=== PATIENT | male | born 2000 | race Caucasian/White ===

== ENCOUNTER 2022-11-14 09:34 | Emergency (ER) | payer MEDICAID, SELFPAY ==
--- NOTE | 2022-11-14 09:38 | ECG_ITS ---
Test Reason : cp Blood Pressure : / mmHG Vent. Rate : 070 BPM Atrial Rate : 070 BPM P-R Int : 148 ms QRS Dur : 092 ms QT Int : 328 ms P-R-T Axes : 065 057 028 degrees QTc Int : 354 ms Normal sinus rhythm Normal ECG No previous ECGs available Referred By: Generic ED Physician Electronically Signed By:THEA GILBERT
[2022-11-14 09:57] VITALS: BP 124/78; PULSE 68; RESP 15; TEMP 36.8; O2SAT 98; BMI 29.8
[2022-11-14 10:16] LABS: MANUAL DIFF FLAG NO
[2022-11-14 10:17] LABS: Basophils Absolute Auto 0.1 X10*3/uL (0.0-0.2); Basophils Percent Auto 0.8 % (0-2); Eosinophils Absolute Auto 0.2 X10*3/uL (0.0-0.4); Eosinophils Percent Auto 2.8 % (0-4); Hematocrit 48.6 % (42.0-52.0); Hemoglobin 16.6 g/dl (14.0-18.0); Imm Gran Abs Auto 0.02 X10*3/uL (0.00-0.03); Imm Gran Pct Auto 0.3 % (0.0-0.4); Lymphocytes Absolute Auto 2.1 X10*3/uL (1.2-4.9); Lymphocytes Percent Auto 25.9 % (20-40); Mean Corpuscular HGB Conc 34.2 g/dl (31.0-36.0); Mean Corpuscular Hemoglobin 27.9 pg (27.0-33.0); Mean Corpuscular Volume 81.5 fL (80.0-98.0); Mean Platelet Volume 8.9 fL (9.4-12.4); Monocytes Absolute Auto 0.8 X10*3/uL (0.1-1.2); Monocytes Percent Auto 10.4 % (2-11); Neutrophils Absolute Auto 4.7 x10*3/uL (2.0-8.3); Neutrophils Percent Auto 59.8 % (45-73); Platelet Count 302 X10*3/uL (160-400); Red Blood Count 5.96 X10*6/uL (4.60-5.80); Red Cell Distribution Width 13.6 % (11.0-16.0); White Blood Count 7.9 X10*3/uL (4.8-10.8)
[2022-11-14 10:19] LABS: Appearance Urine Clear; Color Urine Yellow; Glucose Urine UA Negative (Negative); Nitrite Urine Negative (Negative); PH 6.5 (5.0-9.0); Urine Blood Negative (Negative); Urine Ketones Negative (Negative); Urine Protein Negative (Neg-Trace)
[2022-11-14 10:20] LABS: Leukocyte Esterase Urine Negative (Negative)
[2022-11-14 11:15] LABS: Alanine Aminotransferase 21 U/L (0-40); Albumin Level 4.4 g/dL (3.5-5.0); Alkaline Phosphatase 67 U/L (39-117); Anion Gap 13 (12-20); Aspartate Amino Transferase 24 U/L (5-37); Bilirubin Direct < 0.2 mg/dL (0.0-0.5); Bilirubin Total 0.2 mg/dL (0.0-1.0); Blood Urea Nitrogen 8 mg/dL (9-16); Calcium 9.8 mg/dL (8.4-10.2); Carbon Dioxide 26 mmol/L (22-29); Chloride 106 mmol/L (96-108); Creatinine Clr Calc Pharmacy 111.3; Estimated Glomerular Filt Rate > 60; Glucose Random 96 mg/dL (60-115); Lipase 14 U/L (8-78); Potassium 4.2 mmol/L (3.3-5.1); Sodium 141 mmol/L (135-145); Total Protein 8.1 g/dL (6.5-8.0)
[2022-11-14 14:18] VITALS: BP 133/87; PULSE 68; RESP 18; O2SAT 98
--- NOTE | 2022-11-14 14:21 | PC.NURSE ---
pt alert and oriented, skin pwd, respirations even and unlabored, pt reports having and/epigastria pain for a couple of days denies n/v/but reports dark stool taking ibuprofen and pepto bismal at home. abd soft and non-tender and positive bowel sounds in all 4 quadrants
--- NOTE | 2022-11-14 14:43 | ED.ABDPAIN ---
HPI - Abdominal Pain General Chief Complaint: Abdominal Pain Stated Complaint: abd pain, chest pain Time Seen by Provider: 11/14/22 14:02 Source: patient Mode of arrival: ambulatory Limitations: no limitations History of Present Illness HPI narrative: 22 yo male with no significant PMHx presents to the ED today with complaint of epigastric abdominal pain, anorexia, diarrhea for 3 days. Reports sudden onset of epigastric pain 3 days ago, 8/10 at onset, improving, now a 1/10. Additionally reports 3 days of loose stools, last bowel movement prior to arrival. Has been taking Pepto-Bismol without relief. Denies BRBPR, hematochezia, or melana. Denies fever, headache, chest pain, SOB, N/V, dysuria or hematuria, flank pain. No sick contacts. Admits to social EtOH consumption, daily marijuana use. Related Data Allergies Allergy/AdvReac Type Severity Reaction Status Date / Time amoxicillin [AMOXICILLIN] Allergy Unknown RASH Verified 11/14/22 15:32 Review of Systems Review of Systems Constitutional: No fever, No chills, No fatigue, No malaise ENT/Mouth: No ear pain, No hearing loss, No nasal congestion, No sinus pain, No rhinorrhea, No sore throat Eyes: No eye pain, No swelling, No redness, No vision changes, No foreign body, No discharge Cardio: No chest pain, No palpitations, No dyspnea on exertion, No orthopnea, No edema Respiratory: No SOB, No cough, No sputum, No wheezing, No dyspnea, No hemoptysis GI: No nausea, No vomiting, No hematemesis, + abdominal pain, + diarrhea, No constipation, No hematochezia, No melena : No irregular bleeding, No dysuria, No frequency, No urgency, No hesitancy, No hematuria, No flank pain MSK: No back pain, No neck pain, No joint pain, No myalgias Skin: No skin lesions, No rashes Neuro: No weakness, No numbness, No paresthesias, No LOC, No dizziness, No headache All other systems reviewed and are negative. [facility] Past Medical History Attestation statement: The following information was validated with the patient. Source: old records reviewed and nursing notes reviewed Social History Social History Alcohol intake: current Alcohol intake frequency: a few times a week Smoked in Last 30 Days: No Use of substances other than those prescribed or required for medical reasons: No Substance Use Type: Marijuana Advance Directives: No Physical Exam ED Vital Signs: Vital Signs - 24 hr 11/14/22 09:57 11/14/22 14:18 11/14/22 16:11 Temperature 98.2 F 97.9 F Pulse Rate 68 68 62 Respiratory Rate 15 18 16 Blood Pressure 124/78 133/87 126/59 L Pulse Oximetry 98 98 99 Oxygen Delivery Method Room Air Room Air Room Air 11/14/22 16:53 Temperature 98.4 F Pulse Rate 63 Respiratory Rate 14 Blood Pressure 115/69 Pulse Oximetry 96 Oxygen Delivery Method Room Air BMI result Body Mass Index 29.8 Vital signs stable General: Nontoxic appearing. NAD. Skin: Warm and dry. No rashes or lesions. Head: Normocephalic, atraumatic. EENT: Conjunctiva clear. Sclera is anicteric. PERRLA. EOM intact. Moist mucous membranes. Neck: Supple without LAD. Normal ROM. Trachea midline. Cardiac: Chest wall symmetric. RRR. S1 and S1 appreciated. No MRG. No JVD. Lungs: CTA bilaterally. No rales, rhonchi, or wheezes. Normal respiratory effort without accessory muscle use. Abdomen: No visible lesions or scars. No Blake Best sign. Soft, non-tender, non-distended. No rebound tenderness or guarding. Normoactive BS x4. No masses, hepatomegaly, or splenomegaly. Negative Rovsing sign. Negative McBurney point. Negative Londono sign. Spine: No midline spinous tenderness. No deformity or step off. No CVAT. Ext: Upper and lower extremities atraumatic. Full ROM throughout.Capillary refill <2 seconds in all extremities. Pulses 2+ equal b/l. No edema, cyanosis, or clubbing. Neuro: Alert and oriented x3. Normal speech. CN 2-12 grossly intact. Strength 5/5 intact throughout. Sensation intact to light touch. NV intact distally. Reflexes 2+ bilaterally. Ambulating with steady gait. Psych: Appropriate mood and affect. Responds appropriately to questions. Course Course Course Narrative: 1500-- CBC without leukocytosis or anemia. Chemistry with mildly decreased renal function likely secondary to diarrhea > patient receiving IV fluids. Lipase within normal limits, unlikely pancreatitis. Urine without infection > no UTI. Serology pending. CRP pending. 1608-- GI cocktail ordered. Will do p.o. trial 1647-- CRP within normal limits. COVID influenza negative. On re-evaluation patient states that he is feeling better with IV fluids and GI cocktail. Able to tolerate PO. This is likely a a viral illness that will self resolve. Advised patient that he should stick to a bland diet and drink plenty of fluids. Discussed return precautions such as fever, intractable vomiting, worsening abdominal pain or diarrhea. Patient's vital signs are stable. All questions answered. Stable for discharge. Medical Decision Making Medical Decision Making [facility] Narrative: 22 yo male with no significant PMHx presents to the ED today with complaint of epigastric abdominal pain, anorexia, diarrhea for 3 days. Vital signs stable. Patient nontoxic appearing, in no acute distress. Abdomen soft, nondistended, nontender to palpation, no rebound tenderness or guarding. Rovsing's is negative, McBurney point negative, Londono sign negative. Clinical concern for a viral syndrome vs gastroenteritis vs gastritis vs PUD > will check basic labs, viral serology. Unlikely appendicitis or cholecystitis > will obtain a CRP to rule out acute inflammatory process. Unlikely pancreatitis, will obtain lipase. Clinical concern for dehydration > patient receiving IV fluids. Low suspicion for diverticulitis, obstruction, acute abdomen. Will order GI cocktail for patient's symptoms. Differential Diagnosis Differential Diagnoses: The differential diagnosis associated with the presentation includes Clinical concern for a viral syndrome vs gastroenteritis vs gastritis vs PUD > will check basic labs, viral serology. Unlikely appendicitis or cholecystitis > will obtain a CRP to rule out acute inflammatory process. Unlikely pancreatitis, will obtain lipase. Clinical concern for dehydration > patient receiving IV fluids. Low suspicion for diverticulitis, obstruction, acute abdomen. Will order GI cocktail for patient's symptoms. Admission/Observation Not indicated. Lab Data [facility] Lab Attestation statement: I reviewed the patient's lab results. See above course narrative 11/14/22 10:12 11/14/22 10:10 Labs: Lab Results 11/14/22 11/14/22 11/14/22 Range/Units 10:10 10:12 15:48 WBC 7.9 (4.8-10.8) X10*3/uL RBC 5.96 H (4.60-5.80) X10*6/uL Hgb 16.6 (14.0-18.0) g/dl Hct 48.6 (42.0-52.0) % MCV 81.5 (80.0-98.0) fL MCH 27.9 (27.0-33.0) pg MCHC 34.2 (31.0-36.0) g/dl RDW 13.6 (11.0-16.0) % Plt Count 302 (160-400) X10*3/uL MPV 8.9 L (9.4-12.4) fL Immature Gran % (Auto) 0.3 (0.0-0.4) % Neut % (Auto) 59.8 (45-73) % Lymph % (Auto) 25.9 (20-40) % [place] % (Auto) 10.4 (2-11) % Eos % (Auto) 2.8 (0-4) % Baso % (Auto) 0.8 (0-2) % Lymph # (Auto) 2.1 (1.2-4.9) X10*3/uL [place] # (Auto) 0.8 (0.1-1.2) X10*3/uL Eos # (Auto) 0.2 (0.0-0.4) X10*3/uL Baso # (Auto) 0.1 (0.0-0.2) X10*3/uL Abs Immat Gran (auto) 0.02 (0.00-0.03) X10*3/uL Absolute Neuts (auto) 4.7 (2.0-8.3) x10*3/uL Absolute Nucleated RBC 0.000 (0.0-0.012) X10*3/uL Nucleated RBC % (auto) 0.0 (0.0-0.2) /100WBC Sodium 141 (135-145) mmol/L Potassium 4.2 (3.3-5.1) mmol/L Chloride 106 (96-108) mmol/L Carbon Dioxide 26 (22-29) mmol/L Anion Gap 13 (12-20) BUN 8 L (9-16) mg/dL Creatinine 1.03 (0.5-1.4) mg/dL Estim Creat Clear Calc 111.3 Estimated GFR > 60 Random Glucose 96 (60-115) mg/dL Calcium 9.8 (8.4-10.2) mg/dL Total Bilirubin 0.2 (0.0-1.0) mg/dL Direct Bilirubin < 0.2 (0.0-0.5) mg/dL AST 24 (5-37) U/L ALT 21 (0-40) U/L Alkaline Phosphatase 67 (39-117) U/L Total Creatine Kinase 100 (38-174) U/L C-Reactive Protein 0.85 H (< or = 0.50) mg/dL Total Protein 8.1 H (6.5-8.0) g/dL Albumin 4.4 (3.5-5.0) g/dL Lipase 14 (8-78) U/L Urine Color Yellow Urine Appearance Clear Urine pH 6.5 (5.0-9.0) Ur Specific [place] 1.010 (1.005-1.025) Urine Protein Negative (Neg-Trace) mg/dL Urine Glucose (UA) Negative (Negative) mg/dL Urine Ketones Negative (Negative) mg/dL Urine Blood Negative (Negative) Urine Nitrite Negative (Negative) Ur Leukocyte Esterase Negative (Negative) Influenza Type A (ELIAZAR) Negative (Negative) Influenza Type B (ELIAZAR) Negative (Negative) Influenza A & B Note See Note Tests considered The following testing was considered but not selected: Considered CT abdomen/pelvis however abdominal exam benign, no leukocytosis, afebrile, no concern for acute abdomen. Prescription Management I considered prescription management with: Pain Medication Medications Administered Discontinued Medications Generic Name Dose Route Start Last Admin Trade Name Freq PRN Reason Stop Dose Admin Al Hydroxide/Mg Hydroxide 30 ml 11/14/22 16:07 11/14/22 16:31 Magnesium Hydrox/Alum Hydrox 30 Ml Oral.Susp PO 11/14/22 16:08 30 ml ONCE ONE Administration Belladonna Alkaloids/Phenobarbital 10 ml 11/14/22 16:07 11/14/22 16:30 Phenobarb/Hyoscy/Atropine/Scop 10 Ml Elixir PO 11/14/22 16:08 10 ml ONCE ONE Administration Sodium Chloride 1,000 mls @ 999 mls/hr 11/14/22 15:15 11/14/22 15:32 Ns IV 11/14/22 16:15 999 mls/hr .Q1H1M ANUSHA Administration Ondansetron HCl 4 mg 11/14/22 16:07 11/14/22 16:30 Ondansetron Hcl 4 Mg/2 Ml Vial IVPUSH 11/14/22 16:08 4 mg ONCE ONE Administration Critical Care Time Critical Care Time Critical Care Time: No Discharge Plan Discharge Clinical Impression: Gastroenteritis Patient Disposition: Home, Self-Care Instructions: Gastroenteritis (ED), Acute Diarrhea (ED) Additional Instructions: Your lab workup today was reassuring. Your urine test was negative for infection. You tested negative for COVID and flu. Your symptoms are most consistent with a viral stomach bug, also known as gastroenteritis. The treatment for this is supportive care. Symptoms usually resolve on their own in 48-72 hours. The recommendation is rest and lots of oral hydration. Stick to a bland diet like soup and toast while you are not feeling well. You can also try over the counter Pepto Bismol or Imodium as needed for upset stomach and diarrhea. Follow up with your primary care provider as needed. If you develop new or worsening symptoms call 911 or come back to the ER for further evaluation. Referrals: [facility] [Provider Group] Stand Alone Forms: Work/School Release
[2022-11-14] MEDS: 0.9 % Sodium Chloride 1,000 ML 999 ML IV (15:32)
--- NOTE | 2022-11-14 15:43 | PC.NURSE ---
assumed care of pt at 1415, pt resting quietly, 20G IV placed R AC, 1L NS running. no new orders at this time.
[2022-11-14 16:11] VITALS: BP 126/59; PULSE 62; RESP 16; TEMP 36.6; O2SAT 99
[2022-11-14 16:12] LABS: COVID-19 Test Negative (Negative); IDNOW Serial# 08D9AD1C
[2022-11-14 16:18] LABS: IDNOW Serial# BCCEAD1C; Influenza A Negative (Negative); Influenza B2 Negative (Negative)
[2022-11-14] MEDS: ondansetron HCL 4 MG/2 ML VIAL IVPUSH (16:30)
[2022-11-14] MEDS: PHENobarb/Hyoscy/Atropine/Scop 10 ML ELIXIR PO (16:30)
[2022-11-14] MEDS: Magnesium Hydrox/Alum Hydrox 30 ML ORAL.SUSP PO (16:31)
--- NOTE | 2022-11-14 16:33 | PC.NURSE ---
pt medicated per APR for nausea and 5/10 intermittent abd pain.
[2022-11-14 16:43] LABS: C Reactive Protein 0.85 mg/dL (< or = 0.50)
[2022-11-14 16:53] VITALS: BP 115/69; PULSE 63; RESP 14; TEMP 36.9; O2SAT 96
== END 2022-11-14 20:59 | disposition home or self-care (01) ==
PROVIDERS: Physician Assistant Medical; Emergency Provider Emergency Medicine Emergency Medical Services
DX: K52.9 Noninfective gastroenteritis and colitis, unspecified (principal); Z20.822 Contact with and (suspected) exposure to COVID-19
CPT/HCPCS: 36415; 80048; 80076; 81003; 82550; 83690; 85025; 86140; 87502; 87635; 93005; 96361; 96374; 99284; 99285; J2405

== ENCOUNTER 2024-08-29 16:28 | Inpatient (IN) | payer OTHER, SELFPAY ==
[2024-08-29 16:36] VITALS: BP 145/76; PULSE 120; O2SAT 99
--- NOTE | 2024-08-29 16:37 | ECG_ITS ---
Test Reason : OD Blood Pressure : */* mmHG Vent. Rate : 99 BPM Atrial Rate : 99 BPM P-R Int : 156 ms QRS Dur : 104 ms QT Int : 332 ms P-R-T Axes : 66 63 30 degrees QTcB Int : 426 ms Normal sinus rhythm Possible Left atrial enlargement Borderline ECG When compared with ECG of 14-Nov-2022 09:41, Nonspecific T wave abnormality now evident in Anterior leads QT has lengthened Referred By: Lesvia Carvajal Electronically Signed By: TERRELL AREVALO MD
[2024-08-29 16:44] VITALS: BP 150/89; PULSE 105; RESP 18; TEMP 37.3; O2SAT 98; BMI 30.8
[2024-08-29 17:03] LABS: MANUAL DIFF FLAG NO
[2024-08-29 17:05] LABS: Hematocrit 46.1 % (42.0-52.0); Hemoglobin 16.5 g/dl (14.0-18.0); Imm Gran Abs Auto 0.05 X10*3/uL (0.00-0.03); Imm Gran Pct Auto 0.3 % (0.0-0.4); Lymphocytes Absolute Auto 2.1 X10*3/uL (1.2-4.9); Mean Corpuscular HGB Conc 35.8 g/dl (31.0-36.0); Mean Corpuscular Hemoglobin 28.5 pg (27.0-33.0); Mean Corpuscular Volume 79.8 fL (80.0-98.0); NRBC Abs Auto 0.000 X10*3/uL (0.0-0.012); NRBC Pct Auto 0.0 /100WBC (0.0-0.2); Platelet Count 346 X10*3/uL (160-400); Red Blood Count 5.78 X10*6/uL (4.60-5.80); White Blood Count 15.0 X10*3/uL (4.8-10.8)
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
[2024-08-29 17:22] LABS: Acetaminophen LAB < 3 mcg/mL (<30); Alanine Aminotransferase 22 U/L (0-40); Albumin Level 5.3 g/dL (3.5-5.0); Alkaline Phosphatase 62 U/L (39-117); Anion Gap 15 (12-20); Aspartate Amino Transferase 26 U/L (5-37); Blood Urea Nitrogen 16 mg/dL (9-16); Calcium 9.9 mg/dL (8.4-10.2); Carbon Dioxide 19 mmol/L (22-29); Chloride 108 mmol/L (96-108); Creatinine Clr Calc Pharmacy 103.2; Estimated Glomerular Filt Rate > 60; Salicylate < 5.0 mg/dL (15-30); Sodium 139 mmol/L (135-145); Total Protein 8.5 g/dL (6.5-8.0)
--- NOTE | 2024-08-29 17:22 | ECG_ITS ---
Test Reason : OD Blood Pressure : */* mmHG Vent. Rate : 110 BPM Atrial Rate : 110 BPM P-R Int : 142 ms QRS Dur : 108 ms QT Int : 330 ms P-R-T Axes : 65 60 20 degrees QTcB Int : 446 ms Sinus tachycardia Otherwise normal ECG When compared with ECG of 29-Aug-2024 16:39, No significant change was found Referred By: Mingo Berger Electronically Signed By: TERRELL AREVALO MD
[2024-08-29 17:24] LABS: Potassium 2.9 mmol/L (3.3-5.1)
--- NOTE | 2024-08-29 17:32 | PC.NURSE ---
poison control contacted. requested magnesium blood work, if less than 2 supplement with mag. monitor patient temperature for possible serotonin syndrome. ekg x2 q2hr
[2024-08-29 17:46] VITALS: BP 141/80; PULSE 110; RESP 14; TEMP 36.9; O2SAT 96
--- NOTE | 2024-08-29 17:50 | MHC.EDTECH ---
pt changed over into [place]. calm and cooperative. belongings locked up in [facility] shelf 3.
[2024-08-29 17:52] LABS: Magnesium 1.9 mg/dL (1.6-2.6)
[2024-08-29] MEDS: Potassium Chloride Packet 20 MEQ PACKET 40 MEQ PO ×2 (18:38→21:49)
[2024-08-29 18:41] VITALS: BP 143/77; PULSE 110; RESP 19; O2SAT 98
[2024-08-29] MEDS: KCl 20 mEq in 0.45% Sod 20 MEQ/1,000 ML IV.SOLN 500 MEQ IVCONT (19:13)
--- NOTE | 2024-08-29 20:28 | PC.NURSE ---
poison control called and was updated. poison control states patient can be medically cleared after 8 hours.
[2024-08-29 20:32] VITALS: BP 127/77; PULSE 99; RESP 24; TEMP 37.3; O2SAT 98
--- NOTE | 2024-08-29 21:02 | ECG_ITS ---
Test Reason : OVERDOSE Blood Pressure : */* mmHG Vent. Rate : 89 BPM Atrial Rate : 89 BPM P-R Int : 144 ms QRS Dur : 102 ms QT Int : 328 ms P-R-T Axes : 74 65 29 degrees QTcB Int : 399 ms Normal sinus rhythm Normal ECG When compared with ECG of 29-Aug-2024 17:28, No significant change was found Referred By: Mingo Berger Electronically Signed By: TERRELL AREVALO MD
--- NOTE | 2024-08-29 21:25 | PC.NURSE ---
provider verbalized he only wanted one bag of IV fluids that were ordered.
[2024-08-29 21:34] LABS: Potassium 4.1 mmol/L (3.3-5.1)
[2024-08-29 21:43] LABS: COVID-19 Test Negative (Negative); IDNOW Serial# 6674DD1D
[2024-08-29 23:30] VITALS: BP 135/84; PULSE 83; RESP 20; TEMP 37.2; O2SAT 96
[2024-08-30 00:54] VITALS: BP 123/64; PULSE 74; RESP 12; TEMP 37.1; O2SAT 96
[2024-08-30 07:35] VITALS: BP 126/90; PULSE 97; RESP 14; O2SAT 96
--- NOTE | 2024-08-30 07:54 | PC.NURSE ---
Addendum entered by Osei Youngblood 08/30/24 08:51: Pt is able to follow commands, calm and cooperative. Denies SI/HI. Pt sts he feels safe at home. Original Note: Pt is calm and cooperative. A+OX4. Pt denies any pain, anxiety, or discomfort at this time. RR even and unlabored. Pt denies SOB or CP.
--- NOTE | 2024-08-30 09:30 | PHA.MEDREC ---
Pharmacy Consult ? Medication Reconciliation Pharmacy has completed the medication reconciliation. Spoke to patient to confirm medication list.
[2024-08-30 10:22] VITALS: BP 147/80; PULSE 81; RESP 19; TEMP 37.1; O2SAT 96
--- NOTE | 2024-08-30 10:28 | PC.NURSE ---
pt's sitter reports that the pt feels hot and sweaty, pt is a-febrile at this time, checked poc good at 103, pt is slightly diaphoretic on the forehead
[2024-08-30 10:30] LABS: Glucose, Whole Blood 103 mg/dL (60-115)
[2024-08-30 11:02] LABS: Appearance Urine Clear; Glucose Urine UA Negative (Negative); PH 7.5 (5.0-9.0); Specific Gravity - Urine 1.020 (1.005-1.025); UMIC TRIGGER UA YES
[2024-08-30 11:26] LABS: Cannabinoid Screen Urine POSITIVE (Not Detect)
[2024-08-30 11:30] VITALS: BP 142/80; PULSE 96; RESP 16; TEMP 36.9; O2SAT 98; BMI 30.3
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
[2024-08-30 20:00] VITALS: BP 125/61; PULSE 74; RESP 16; TEMP 37.2; O2SAT 97
[2024-08-31 07:44] VITALS: BP 142/64; PULSE 73; RESP 16; TEMP 36.4; O2SAT 98
[2024-08-31 08:12] LABS: Alanine Aminotransferase 26 U/L (0-40); Albumin Level 5.1 g/dL (3.5-5.0); Alkaline Phosphatase 57 U/L (39-117); Anion Gap 10 (12-20); Aspartate Amino Transferase 24 U/L (5-37); Blood Urea Nitrogen 14 mg/dL (9-16); Calcium 9.8 mg/dL (8.4-10.2); Carbon Dioxide 30 mmol/L (22-29); Chloride 106 mmol/L (96-108); Cholesterol 151 mg/dL (<200); Creatinine Clr Calc Pharmacy 100.5; Estimated Glomerular Filt Rate > 60; HDL Cholesterol 44 mg/dL (>40); Hemoglobin A1C 149.8855 umol/L; Potassium 4.6 mmol/L (3.3-5.1); Sodium 141 mmol/L (135-145); Total Hemoglobin (HGBA1C) 4273.8627 umol/L; Total Protein 8.3 g/dL (6.5-8.0); Triglycerides 71 mg/dL (<150)
[2024-08-31] MEDS: FINASTERIDE 1 MG 1 EACH PO (10:34)
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
--- NOTE | 2024-08-31 14:19 | MHC.CLN ---
NUTRITION CONSULT PATIENT REPORTED 5# WEIGHT LOSS X 4 WEEKS. WEIGHT LOSS NOT SIGNIFICANT. NO ADDITIONAL NUTRITION INTERVENTIONS AT THIS TIME. PLEASE CONSULT RD IF PATIENT WITH POOR PO/APPETITE.
[2024-08-31 19:15] VITALS: BP 130/79; PULSE 65; RESP 16; TEMP 37.2; O2SAT 97
[2024-09-01 07:00] VITALS: BMI 29.8
[2024-09-01 07:15] VITALS: BP 107/64; PULSE 86; RESP 16; TEMP 36.4; O2SAT 98
[2024-09-01] MEDS: FINASTERIDE 1 MG 1 EACH PO (08:11)
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
[2024-09-01 20:00] VITALS: BP 134/80; PULSE 113; RESP 14; TEMP 36.1; O2SAT 96
[2024-09-02 07:53] VITALS: BP 127/69; PULSE 88; TEMP 35.9; O2SAT 99
[2024-09-02] MEDS: FINASTERIDE 1 MG 1 EACH PO (08:55)
--- NOTE | 2024-09-02 15:50 | HO.PSYCHPN ---
Subjective Subjective Date of Service: 09/02/24 Reason For Visit: SI Interim History: calm, cooperative, pleasant. reports he is sleeping and eating well. asks for discharge today and is declined. reporting vomiting after breakfast the past 2 days. states he normally doesn't eat breakfast. he is advised to either eat less or take zofran prophylactically. per staff, 12b up the 7th. denies anx/dep. had trazodone PRN, slept about 6 hours. Mental Status Exam Mental Status Exam Narrative: Pt is alert and oriented; behavior is cooperative and calm; dressed in casual attire; mood is described as all right ; eye contact appropriate; Speech is normal rate, volume and not pressured; thought process is organized; Thought content is on discharge; denies SI/HI/VH/AH. Diagnostics Vital Signs (24Hr): Vital Signs - 24 hr 09/01/24 20:00 09/02/24 07:53 Temperature 97 F 96.7 F L Pulse Rate 113 H 88 Respiratory Rate 14 Blood Pressure 134/80 127/69 Pulse Oximetry 96 99 Oxygen Delivery Method Room Air Room Air BMI result Body Mass Index 29.8 Labs 08/29/24 16:59 08/31/24 07:28 Medications Medications Current Medications Acetaminophen (Acetaminophen 325 Mg Tablet) 650 mg PO Q6H PRN PRN Reason: Headache/Pain, Scale 1-10 Al Hydroxide/Mg Hydroxide (Magnesium Hydrox/Alum Hydrox 30 Ml Oral.Susp) 30 ml PO Q6H PRN PRN Reason: Heartburn/Nausea Hydroxyzine HCl (Hydroxyzine Hcl 25 Mg Tablet) 25 mg PO Q6H PRN PRN Reason: mild anxiety Magnesium Hydroxide (Milk Of Magnesia 30 Ml Oral.Susp) 30 ml PO DAILY PRN PRN Reason: Constipation Nicotine Polacrilex (Nicotine Polacrilex 2 Mg Gum) 4 mg BUCCAL Q2H PRN PRN Reason: Nicotine Cravings Last Admin: 09/02/24 14:10 Dose: 4 mg Pat Own Med ( Finasteride 1 Mg Tablet) 1 mg PO DAILY [facility] Last Admin: 09/02/24 08:55 Dose: 1 mg Olanzapine (Olanzapine 5 Mg Tablet) 5 mg PO Q4H PRN PRN Reason: agitation Ondansetron HCl (Ondansetron Odt 8 Mg Tab.Rapdis) 8 mg TRANSLINGU Q12H PRN PRN Reason: Nausea and Vomiting Sertraline HCl (Sertraline Hcl 25 Mg Tablet) 25 mg PO DAILY [facility] Last Admin: 09/02/24 08:55 Dose: 25 mg Sertraline HCl (Sertraline Hcl 50 Mg Tablet) 50 mg PO DAILY [facility] Last Admin: 09/02/24 08:55 Dose: 50 mg Trazodone HCl (Trazodone Hcl 50 Mg Tablet) 50 mg PO BEDTIME MRX1 PRN PRN Reason: Insomnia Last Admin: 09/01/24 22:28 Dose: 50 mg Allergies Allergies Allergy/AdvReac Type Severity Reaction Status Date / Time amoxicillin (AMOXICILLIN) Allergy Unknown RASH Verified 08/29/24 16:50 Assessment & Plan Assessment & Plan (1) MDD (major depressive disorder), recurrent episode: Status: Acute Code(s): F33.9 - Major depressive disorder, recurrent, unspecified (2) PTSD (post-traumatic stress disorder): Status: Acute Code(s): F43.10 - Post-traumatic stress disorder, unspecified Plan Patient is a 24-year-old male with history of MDD and PTSD who was brought in by ambulance to ER due to intentional overdose on Sertraline secondary to a verbal altercation with his brother. Plan: 12B 15 minute safety checks continue home medications obtain collateral encourage groups discharge planning 08/31: Active on unit. attending groups. Patient reports feeling calm ; pt states he has been receiving a lot of support from my family . Patient reports he is regretful of his actions prior to admission; pt stated, I should of reacted better and not done that . denies SI/HI/VH/AH. Per nursing, slept 8 hours. Pt reports he does not want any medication changes d/t not liking taking meds . Education handout given on hydroxyzine for anxiety. 12B up on 09/05/24. 09/01: Patient reports feeling alright today; pt reports he was able to speak with his mother about everything that happened prior to admission. Pt stated, I've been talking to my mom on the phone a lot. I'm no longer worried about my brother hurting me . Patient continues to be regretful of overdose. denies SI/HI/VH/AH. 12B up on 09/05/24. Continue current tx plan. 09/02: reports vomiting after breakfast each of the past 2 days. says he doesn't usually eat breakfast. advised to either eat small breakfast or prophylax with zofran. asking for discharge, informed attending will return thursday for decision on discharge. otehrwise no complaints, feeling well. Reason for continued inpatient stay Substantial Risk for: harm to self and rapid decompensation Time Spent With Patient Time: Total time managing care of this patient today ____ minutes.
[2024-09-02 20:02] VITALS: BP 143/73; PULSE 84; RESP 16; TEMP 36.3; O2SAT 97
[2024-09-03 08:08] VITALS: BP 120/69; PULSE 80; RESP 14; TEMP 36; O2SAT 99
[2024-09-03] MEDS: FINASTERIDE 1 MG 1 EACH PO (09:24)
--- NOTE | 2024-09-03 14:20 | P.PNPSI_ITS ---
Subjective Subjective Date of Service: 09/03/24 Reason For Visit: SI Interim History: feeling well [facility]. vomited again this morning. advised to take zofran prophylactically. per staff, denies Sx. broad, visible. feeling safe on unit. vomited yesterday. slept 9 hours. spending time on phone. had PRN trazodone. Mental Status Exam Mental Status Exam Narrative: Pt is alert and oriented; behavior is cooperative and calm; dressed in casual attire; mood is described as all right ; eye contact appropriate; Speech is normal rate, volume and not pressured; thought process is organized; Thought content is on discharge; denies SI/HI/VH/AH. Diagnostics Vital Signs (24Hr): Vital Signs - 24 hr 09/02/24 20:02 09/03/24 08:08 Temperature 97.4 F 96.8 F Pulse Rate 84 80 Respiratory Rate 16 14 Blood Pressure 143/73 H 120/69 Pulse Oximetry 97 99 Oxygen Delivery Method Room Air Room Air BMI result Body Mass Index 29.8 Labs 08/29/24 16:59 08/31/24 07:28 Medications Medications Current Medications Acetaminophen (Acetaminophen 325 Mg Tablet) 650 mg PO Q6H PRN PRN Reason: Headache/Pain, Scale 1-10 Al Hydroxide/Mg Hydroxide (Magnesium Hydrox/Alum Hydrox 30 Ml Oral.Susp) 30 ml PO Q6H PRN PRN Reason: Heartburn/Nausea Hydroxyzine HCl (Hydroxyzine Hcl 25 Mg Tablet) 25 mg PO Q6H PRN PRN Reason: mild anxiety Magnesium Hydroxide (Milk Of Magnesia 30 Ml Oral.Susp) 30 ml PO DAILY PRN PRN Reason: Constipation Nicotine Polacrilex (Nicotine Polacrilex 2 Mg Gum) 4 mg BUCCAL Q2H PRN PRN Reason: Nicotine Cravings Last Admin: 09/02/24 14:10 Dose: 4 mg Pat Own Med ( Finasteride 1 Mg Tablet) 1 mg PO DAILY [facility] Last Admin: 09/03/24 09:24 Dose: 1 mg Olanzapine (Olanzapine 5 Mg Tablet) 5 mg PO Q4H PRN PRN Reason: agitation Ondansetron HCl (Ondansetron Odt 8 Mg Tab.Rapdis) 8 mg TRANSLINGU Q12H PRN PRN Reason: Nausea and Vomiting Last Admin: 09/03/24 10:17 Dose: 8 mg Sertraline HCl (Sertraline Hcl 25 Mg Tablet) 25 mg PO DAILY [facility] Last Admin: 09/03/24 09:24 Dose: 25 mg Sertraline HCl (Sertraline Hcl 50 Mg Tablet) 50 mg PO DAILY [facility] Last Admin: 09/03/24 09:24 Dose: 50 mg Trazodone HCl (Trazodone Hcl 50 Mg Tablet) 50 mg PO BEDTIME MRX1 PRN PRN Reason: Insomnia Last Admin: 09/02/24 21:02 Dose: 50 mg Allergies Allergies Allergy/AdvReac Type Severity Reaction Status Date / Time amoxicillin (AMOXICILLIN) Allergy Unknown RASH Verified 08/29/24 16:50 Assessment & Plan Assessment & Plan (1) MDD (major depressive disorder), recurrent episode: Status: Acute Code(s): F33.9 - Major depressive disorder, recurrent, unspecified (2) PTSD (post-traumatic stress disorder): Status: Acute Code(s): F43.10 - Post-traumatic stress disorder, unspecified Plan Patient is a 24-year-old male with history of MDD and PTSD who was brought in by ambulance to ER due to intentional overdose on Sertraline secondary to a verbal altercation with his brother. Plan: 12B 15 minute safety checks continue home medications obtain collateral encourage groups discharge planning 08/31: Active on unit. attending groups. Patient reports feeling calm ; pt states he has been receiving a lot of support from my family . Patient reports he is regretful of his actions prior to admission; pt stated, I should of reacted better and not done that . denies SI/HI/VH/AH. Per nursing, slept 8 hours. Pt reports he does not want any medication changes d/t not liking taking meds . Education handout given on hydroxyzine for anxiety. 12B up on 09/05/24. 09/01: Patient reports feeling alright today; pt reports he was able to speak with his mother about everything that happened prior to admission. Pt stated, I've been talking to my mom on the phone a lot. I'm no longer worried about my brother hurting me . Patient continues to be regretful of overdose. denies SI/HI/VH/AH. 12B up on 09/05/24. Continue current tx plan. 09/02: reports vomiting after breakfast each of the past 2 days. says he doesn't usually eat breakfast. advised to either eat small breakfast or prophylax with zofran. asking for discharge, informed attending will return thursday for decision on discharge. otherwise no complaints, feeling well. 09/03: remains feeling well emotionally. vomited again this morning. advised to take zofran prophylactically. continue current mgmt otherwise. Reason for continued inpatient stay Substantial Risk for: harm to self and inability to function Time Spent With Patient Time: Total time managing care of this patient today ____ minutes.
[2024-09-03 19:05] VITALS: BP 131/63; PULSE 65; RESP 16; TEMP 36.9; O2SAT 100
[2024-09-04 08:00] VITALS: BP 126/71; PULSE 71; RESP 16; TEMP 36.2; O2SAT 99
[2024-09-04] MEDS: FINASTERIDE 1 MG 1 EACH PO (08:46)
--- NOTE | 2024-09-04 14:35 | HO.PSYCHPN ---
Subjective Subjective Date of Service: 09/04/24 Reason For Visit: SI Interim History: calm, cooperative, pleasant. no issues. hoping to discharge tomorrow. per staff, pleasant, cheerful. taking meds. denies Sx. trazodone PRN. slept 9 hours. no vomit today. Mental Status Exam Mental Status Exam Narrative: Pt is alert and oriented; behavior is cooperative and calm; dressed in casual attire; mood is described as all right ; eye contact appropriate; Speech is normal rate, volume and not pressured; thought process is organized; Thought content is on discharge; denies SI/HI/VH/AH. Diagnostics Vital Signs (24Hr): Vital Signs - 24 hr 09/03/24 19:05 09/04/24 08:00 Temperature 98.5 F 97.2 F Pulse Rate 65 71 Respiratory Rate 16 16 Blood Pressure 131/63 126/71 Pulse Oximetry 100 99 Oxygen Delivery Method Room Air Room Air BMI result Body Mass Index 29.8 Labs 08/29/24 16:59 08/31/24 07:28 Medications Medications Current Medications Acetaminophen (Acetaminophen 325 Mg Tablet) 650 mg PO Q6H PRN PRN Reason: Headache/Pain, Scale 1-10 Al Hydroxide/Mg Hydroxide (Magnesium Hydrox/Alum Hydrox 30 Ml Oral.Susp) 30 ml PO Q6H PRN PRN Reason: Heartburn/Nausea Hydroxyzine HCl (Hydroxyzine Hcl 25 Mg Tablet) 25 mg PO Q6H PRN PRN Reason: mild anxiety Magnesium Hydroxide (Milk Of Magnesia 30 Ml Oral.Susp) 30 ml PO DAILY PRN PRN Reason: Constipation Nicotine Polacrilex (Nicotine Polacrilex 2 Mg Gum) 4 mg BUCCAL Q2H PRN PRN Reason: Nicotine Cravings Last Admin: 09/04/24 13:16 Dose: 4 mg Pat Own Med ( Finasteride 1 Mg Tablet) 1 mg PO DAILY [facility] Last Admin: 09/04/24 08:46 Dose: 1 mg Olanzapine (Olanzapine 5 Mg Tablet) 5 mg PO Q4H PRN PRN Reason: agitation Ondansetron HCl (Ondansetron Odt 8 Mg Tab.Rapdis) 8 mg TRANSLINGU Q12H PRN PRN Reason: Nausea and Vomiting Last Admin: 09/04/24 08:46 Dose: 8 mg Sertraline HCl (Sertraline Hcl 25 Mg Tablet) 25 mg PO DAILY [facility] Last Admin: 09/04/24 08:46 Dose: 25 mg Sertraline HCl (Sertraline Hcl 50 Mg Tablet) 50 mg PO DAILY [facility] Last Admin: 09/04/24 08:46 Dose: 50 mg Trazodone HCl (Trazodone Hcl 50 Mg Tablet) 50 mg PO BEDTIME MRX1 PRN PRN Reason: Insomnia Last Admin: 09/03/24 21:08 Dose: 50 mg Allergies Allergies Allergy/AdvReac Type Severity Reaction Status Date / Time amoxicillin (AMOXICILLIN) Allergy Unknown RASH Verified 08/29/24 16:50 Assessment & Plan Assessment & Plan (1) MDD (major depressive disorder), recurrent episode: Status: Acute Code(s): F33.9 - Major depressive disorder, recurrent, unspecified (2) PTSD (post-traumatic stress disorder): Status: Acute Code(s): F43.10 - Post-traumatic stress disorder, unspecified Plan Patient is a 24-year-old male with history of MDD and PTSD who was brought in by ambulance to ER due to intentional overdose on Sertraline secondary to a verbal altercation with his brother. Plan: 12B 15 minute safety checks continue home medications obtain collateral encourage groups discharge planning 08/31: Active on unit. attending groups. Patient reports feeling calm ; pt states he has been receiving a lot of support from my family . Patient reports he is regretful of his actions prior to admission; pt stated, I should of reacted better and not done that . denies SI/HI/VH/AH. Per nursing, slept 8 hours. Pt reports he does not want any medication changes d/t not liking taking meds . Education handout given on hydroxyzine for anxiety. 12B up on 09/05/24. 09/01: Patient reports feeling alright today; pt reports he was able to speak with his mother about everything that happened prior to admission. Pt stated, I've been talking to my mom on the phone a lot. I'm no longer worried about my brother hurting me . Patient continues to be regretful of overdose. denies SI/HI/VH/AH. 12B up on 09/05/24. Continue current tx plan. 09/02: reports vomiting after breakfast each of the past 2 days. says he doesn't usually eat breakfast. advised to either eat small breakfast or prophylax with zofran. asking for discharge, informed attending will return thursday for decision on discharge. otherwise no complaints, feeling well. 09/03: remains feeling well emotionally. vomited again this morning. advised to take zofran prophylactically. continue current mgmt otherwise. 09/04: did not vomitt this morning - had zofran prophylactically. feeling good, stable, hoping for discharge tomorrow. Reason for continued inpatient stay Substantial Risk for: harm to self Time Spent With Patient Time: Total time managing care of this patient today ____ minutes.
[2024-09-04] MEDS: Magnesium Hydrox/Alum Hydrox 30 ML ORAL.SUSP PO (15:12)
[2024-09-04 20:00] VITALS: BP 139/82; PULSE 89; RESP 16; TEMP 36.4; O2SAT 99
[2024-09-05 07:48] VITALS: BP 121/67; PULSE 77; RESP 20; TEMP 36; O2SAT 99
[2024-09-05] MEDS: FINASTERIDE 1 MG 1 EACH PO (08:46)
--- NOTE | 2024-09-05 09:39 | P.DS_ITS ---
DS: Providers Provider Date of Service: 09/05/24 Date of admission: 08/30/24 10:48 Date of discharge: 09/05/24 Primary care physician: Unknown Physician Admitting clinician: Bibiana Hernandez Attending physician on admission: Edgardo Mae Attending physician on discharge: Guy Funez Discharging clinician: Bibiana Hernandez DS: Diagnosis Discharge Diagnosis (1) MDD (major depressive disorder), recurrent episode: Status: Acute (2) PTSD (post-traumatic stress disorder): Status: Acute DS: Medications Discharge Medications Home Medications: Home Medications ?Medication ?Instructions ?Recorded ?Confirmed finasteride 1 mg tablet 1 mg PO DAILY 08/30/2408/30 sertraline 25 mg tablet 25 mg PO DAILY 08/30/2403/26 sertraline 50 mg tablet 50 mg PO DAILY 08/30/2403/26 Mental Status Exam Mental Status Exam Narrative: Pt is alert and oriented; behavior is cooperative and calm; dressed in casual attire; mood is described as good ; eye contact appropriate; Speech is normal rate, volume and not pressured; thought process is organized; Thought content is on discharge; denies SI/HI/VH/AH. Data Data Completed and Pending Completed studies during hospitalization [Text1]: 08/29/24 08/29/24 08/30/24 16:59 21:19 10:26 WBC 15.0 H RBC 5.78 Hgb 16.5 Hct 46.1 MCV 79.8 L MCH 28.5 MCHC 35.8 RDW 13.6 Plt Count 346 MPV 9.3 L Immature Gran % (Auto) 0.3 Neut % (Auto) 77.2 H Lymph % (Auto) 14.1 L Howard % (Auto) 7.6 Eos % (Auto) 0.3 Baso % (Auto) 0.5 Lymph # (Auto) 2.1 Howard # (Auto) 1.1 Eos # (Auto) 0.1 Baso # (Auto) 0.1 Abs Immat Gran (auto) 0.05 H Absolute Neuts (auto) 11.6 H Absolute Nucleated RBC 0.000 Nucleated RBC % (auto) 0.0 Sodium 139 Potassium 2.9 L* 4.1 D Chloride 108 Carbon Dioxide 19 L Anion Gap 15 BUN 16 Creatinine 1.11 Estim Creat Clear Calc 103.2 Estimated GFR > 60 POC Glucose 103 Random Glucose 107 Estimat Average Glucose Hemoglobin A1c % Calcium 9.9 Magnesium 1.9 Total Bilirubin 0.3 AST 26 ALT 22 Alkaline Phosphatase 62 Total Protein 8.5 H Albumin 5.3 H Triglycerides Cholesterol LDL Cholesterol, Calc HDL Cholesterol Urine Color Urine Appearance Urine pH Ur Specific [place] Urine Protein Urine Glucose (UA) Urine Ketones Urine Blood Urine Nitrite Ur Leukocyte Esterase Urine RBC Urine WBC Ur Squamous Epith Cells Urine Bacteria Hyaline Casts Salicylates < 5.0 L Urine Opiates Screen Ur Buprenorphine Scrn Ur Oxycodone Screen Urine Methadone Screen Urine Fentanyl Screen Acetaminophen < 3 Ur Barbiturates Screen Ur Phencyclidine Scrn Ur Amphetamines Screen U Benzodiazepines Scrn Urine Cocaine Screen U Marijuana (THC) Screen Ethyl Alcohol < 10 COVID-19 ([facility]) Negative COVID-19 Clin Com See Note 08/30/24 08/31/24 10:54 07:28 WBC RBC Hgb Hct MCV MCH MCHC RDW Plt Count MPV Immature Gran % (Auto) Neut % (Auto) Lymph % (Auto) Howard % (Auto) Eos % (Auto) Baso % (Auto) Lymph # (Auto) Howard # (Auto) Eos # (Auto) Baso # (Auto) Abs Immat Gran (auto) Absolute Neuts (auto) Absolute Nucleated RBC Nucleated RBC % (auto) Sodium 141 Potassium 4.6 Chloride 106 Carbon Dioxide 30 H Anion Gap 10 L BUN 14 Creatinine 1.13 Estim Creat Clear Calc 100.5 Estimated GFR > 60 POC Glucose Random Glucose 85 Estimat Average Glucose 108 Hemoglobin A1c % 5.4 Calcium 9.8 Magnesium Total Bilirubin 0.5 AST 24 ALT 26 Alkaline Phosphatase 57 Total Protein 8.3 H Albumin 5.1 H Triglycerides 71 Cholesterol 151 LDL Cholesterol, Calc 93 HDL Cholesterol 44 Urine Color Yellow Urine Appearance Clear Urine pH 7.5 Ur Specific [place] 1.020 Urine Protein Negative Urine Glucose (UA) Negative Urine Ketones Trace Urine Blood Negative Urine Nitrite Negative Ur Leukocyte Esterase Trace H Urine RBC 0-2 Urine WBC 0-5 Ur Squamous Epith Cells 0-2 Urine Bacteria None Seen Hyaline Casts 0-2 Salicylates Urine Opiates Screen Not Detected Ur Buprenorphine Scrn Not Detected Ur Oxycodone Screen Not Detected Urine Methadone Screen Not Detected Urine Fentanyl Screen Not Detected Acetaminophen Ur Barbiturates Screen Not Detected Ur Phencyclidine Scrn Not Detected Ur Amphetamines Screen Not Detected U Benzodiazepines Scrn Not Detected Urine Cocaine Screen Not Detected U Marijuana (THC) Screen POSITIVE H Ethyl Alcohol COVID-19 ([facility]) COVID-19 Clin Com DS: Summary Hospital Course Hospital Course: Patient is a 24-year-old male with history of MDD and PTSD who was brought in by ambulance to ER due to intentional overdose on Sertraline secondary to a verbal altercation with his brother. Per crisis report, patient reported he ingested around 20 Sertraline pills after getting into a verbal altercation with his brother. Patient recalls getting sick after ingesting pills. Patient reports an increase in depression. Upon as sessment, denies SI/HI/VH/AH. Patient reports poor sleep and appetite. This is patient's 1st inpatient psychiatric hospitalization. Collateral was obtained from patient's mother, Maureen, who reports pt has been increasingly depressed, irritable, and angry. She reports her and her are after many years and this has been upsetting to the patient. Patient also recently dropped out of college and moved back in with mom, as he was not happy at school. Patient's mother reports she heard patient in his room vomiting; when she attempted to open his door, he had barricaded the door and she was able to see patient lying on the floor which prompted her to call 911. During admission assessment, patient presents alert and oriented x3. Calm and cooperative. Patient reports he woke up for my text message from his brother that was disrespectful . Patient stated, I felt like my mom took his side. He left to grab a weapon and my mom and sister went inside to lock the door. My mom said she called the mail carriers supervisor and my grandfather and aunt blocked him from coming inside. I was so angry that my mom was taking his side. I got high and was crying. I then took the overdose and woke up vomiting. I've never done anything like this before. That was the 1st time I felt that way . denies history of SA/SIB. denies SI/HI/VH/AH. Patient minimizing incident and stated, I knew that it was not a lethal dose that I took . Patient reports he has been taking Sertraline 75 mg for the last 3 months. He believes that it is beneficial for his depression and anxiety. Patient declined to sign CV and is currently on a section 12B that is up on 09/05/24. Plan: 12B 15 minute safety checks continue home medications obtain collateral encourage groups discharge planning Active on unit. attending groups. Patient reports feeling calm ; pt states he has been receiving a lot of support from my family . Patient reports he is regretful of his actions prior to admission; pt stated, I should of reacted better and not done that . denies SI/HI/VH/AH. Per nursing, slept 8 hours. Pt reports he does not want any medication changes d/t not liking taking meds . Education handout given on hydroxyzine for anxiety. 12B up on 09/05/24. Patient reports feeling alright today; pt reports he was able to speak with his mother about everything that happened prior to admission. Pt stated, I've been talking to my mom on the phone a lot. I'm no longer worried about my brother hurting me . Patient continues to be regretful of overdose. denies SI/HI/VH/AH. 12B up on 09/05/24. Continue current tx plan. reports vomiting after breakfast each of the past 2 days. says he doesn't usually eat breakfast. advised to either eat small breakfast or prophylax with zofran. asking for discharge, informed attending will return thursday for decision on discharge. otherwise no complaints, feeling well. remains feeling well emotionally. vomited again this morning. advised to take zofran prophylactically. continue current mgmt otherwise. did not vomitt this morning - had zofran prophylactically. feeling good, stable, hoping for discharge tomorrow. Patient reports feeling ready to go home ; denies SI/HI/VH/AH. Pt reports he plans on following up with his outpatient providers. Status at Discharge Cognitive/behavioral status at discharge: Patient has insight and demonstrates good judgment in terms of wanting to pursue treatment. Patient has a safety plan that includes presenting to the closest ER or calling 911 if feeling unsafe. Functional status at discharge: independent ambulation Overall status at discharge: patient is back to baseline Time Spent with Patient Time attestation: Total time managing care of this patient today _20___ minutes. Time spent: Less than 30 minutes Discharge Plan Discharge Anticipated Discharge Date/Time: 09/05/24 10:00 Patient Disposition: Home, Self-Care Discharge Diagnosis: MDD, PTSD Referrals: Therapy & Psychiatry [Other] - 1 Week Referral Note: *A voicemail was left for your outpatient providers letting them know that you will need follow up appointments. Please reach out to them to schedule these. Elvis Best FNP-C [Nurse Practitioner, Internal Medicine] - 1 Week Referral Note: 09-05-24 Your primary care physician has been notified of your discharge and need for a visit. You are scheduled for 04-06-25 for your new patient visit and they are not sure if you can be seen before then. Doctor was messaged and someone will contact your directly. Discharge Medications: New ondansetron 8 mg Tablet,Disintegrating 8 mg translingual Q12H PRN (Reason: Nausea And Vomiting) 30 Days Qty: 60 0RF Continued finasteride 1 mg tablet 1 mg PO DAILY sertraline 25 mg tablet 25 mg PO DAILY 7 Days Qty: 7 3RF sertraline 50 mg tablet 50 mg PO DAILY 7 Days Qty: 7 3RF Discharge Orders: Discharge Order (Routine); Ordered 09/05/24 Ordered By: Bibiana Hernandez Diet: Regular diet Activity on Discharge: As tolerated Stand Alone Forms: Patient Portal Discharge page, Community Support Print Language: [place] Care Plan Goals: Maintain mood and safe behaviors Take medications as prescribed Practice coping skills Continue with outpatient providers and reach out to them as needed Health Concerns: Mood stability and behaviors Plan of Treatment: Follow up with your PCP, psychiatric provider and other outpatient providers regarding above concerns Take medications as prescribed Assessment: Patient has insight and demonstrates good judgment in terms of wanting to pursue treatment. Patient has a safety plan that includes presenting to the closest ER or calling 911 if feeling unsafe. Discharge Date/Time: 09/05/24 10:41
[2024-09-05] MEDS: Throat Lozenge, Medicated LOZENGE 1 LOZENGE MUCOUS MEM (10:05)
== END 2024-09-05 10:41 | disposition home or self-care (01) | DRG 751 ==
LOC: HO.ED 08-30 10:38 → HO.PADLT16 08-30 10:53
PROVIDERS: Emergency Medicine; Physician Assistant Medical; Admitting Provider Registered Nurse; Emergency Provider Emergency Medicine; Responsible Provider Registered Nurse; Visit Provider Psychiatry & Neurology Psychiatry
DX: F33.9 Major depressive disorder, recurrent, unspecified (principal); F43.10 Post-traumatic stress disorder, unspecified; T43.222A Poisoning by selective serotonin reuptake inhibitors, intentional self-harm, initial encounter; Z20.822 Contact with and (suspected) exposure to COVID-19; Z79.899 Other long term (current) drug therapy
CPT/HCPCS: 36415; 80053; 80061; 80143; 80179; 80307; 81001; 81003; 82947; 83036; 83735; 84132; 85025; 87635; 93005; 99285; J3480; S9485

== ENCOUNTER → 2024-08-29 16:37 | Outpatient (BNV) | payer OTHER, SELFPAY | PROVIDERS: Emergency Provider Emergency Medicine; Visit Provider Internal Medicine Cardiovascular Disease | DX: R00.0 Tachycardia, unspecified (principal); T43.292A Poisoning by other antidepressants, intentional self-harm, initial encounter | CPT/HCPCS: 93010 ==

== ENCOUNTER → 2024-08-30 10:48 | Outpatient (BNV) | payer OTHER, SELFPAY | PROVIDERS: Admitting Provider Registered Nurse; Emergency Provider Emergency Medicine; Responsible Provider Registered Nurse; Visit Provider Registered Nurse | DX: F33.2 Major depressive disorder, recurrent severe without psychotic features (principal); F43.11 Post-traumatic stress disorder, acute | CPT/HCPCS: 90792; 99231; 99232 ==

== ENCOUNTER 2024-11-15 15:51 | Outpatient (AMB) | payer OTHER, SELFPAY ==
--- NOTE | 2024-11-15 15:58 | A.OFFPC_ITS ---
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: Patient has dentist HPI HPI Comments History of Present Illness Details History of Present Illness The patient is a 24-year-old male presenting with hair loss and nausea with vomiting. Hair loss: - Occurred in 2022, no initial medical e valuation sought. - Linked to maternal family inheritance. - Previously managed with finasteride, n ot currently taking it. Nausea and vomiting: - Related to previous hospitalization fo r an overdose. - Persistent symptoms, unable to retain food; anti-nausea medication prescribed. - Significant alteration in eating habit s post-discharge. Health Maintenance - Advised dietary modifications to frequ ent, smaller meals and maintaining a food journal. - Recommended general blood, liver, kidn ey, and thyroid function evaluation. - Suggested iron, zinc, vitamin D, vitam in A, B12, and folate level checks. - Advised STI screening including chlamy chris, gonorrhea, and syphilis. Review of Systems - Gastrointestinal: Reports persistent n ausea and vomiting, especially post- discharge from hospitalization. - Dermatologic: Reports hair loss occurr ing since 2022. - Psychiatric: Denies current suicidal o r homicidal ideation. 10-point ROS reviewed and negative excep t as noted in HPI Allergies Medication History - Finasteride 1 mg (previously for hair loss, not currently used) - Ondansetron 8 mg trans lingual q.12 (f or nausea) - Sertraline 25 mg and 50 mg (for Major Depressive Disorder) - Omeprazole 20 mg daily (prescribed for gastrointestinal symptoms) Current Substance Use - Smokes cigarettes - Consumes alcohol - Uses cannabis Substance Use History Past Medical History - Post-Traumatic Stress Disorder (PTSD) - Major Depressive Disorder (MDD) - History of intentional overdose with s ertraline Past Surgical History Family History - Maternal history of hair loss - No known family history of cancer Social History - 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 [employer] - Reports smoking, alcohol, and cannabis use Physical Exam - General- Well-appearing, in no acute d istress - Vital signs- Within normal limits - HEENT- Normocephalic, atraumatic, timothy r oropharynx, TMs intact bilaterally, presence of cerumen - Neck- Supple, no lymphadenopathy - Cardiovascular- Regular rate and rhyth m, normal S1/S2 - Respiratory- Clear lungs bilaterally - Abdomen- Soft, non-tender, non-distend ed - MSK- Full range of motion, normal gait - Skin- Warm, dry, intact - Neuro- Alert and oriented, cranial ner ves intact - Psych- Appropriate mood and affect Discussion Notes During this visit, we discussed the patient's primary concerns regarding hair loss and persistent nausea with vomiting following a hospitalization for an overdose. I recommended frequent, small meals to address the nausea, coupled with maintaining a dietary journal to track intake and symptoms. Omeprazole was advised for stomach issues, to be taken once daily. The need for a complete blood count and additional lab work was discussed, which includes assessments for thyroid, liver, and kidney functions, as well as nutritional levels like zinc and iron given the hair loss concern. We also talked about STI screening and behavioral health follow-ups. Follow-up was advised in two weeks to review journal results and lab findings. Plan 1. Nonscarring hair loss, unspecified L65.9 - Blood tests for iron, zinc, vitamin A, B12, and folate levels ordered. 2. Nausea with vomiting, unspecified R11.2 - Omeprazole 20 mg prescribed, advised d aily use. - Recommended smaller, frequent meals wi th a food journal for tracking. Patient Instructions - Start taking omeprazole 20 mg each day as directed. - Eat smaller meals more often throughou t the day. - Keep a food journal noting what you ea t, how you feel, and the portions. - Follow up in two weeks to review lab r esults and food journal. - Use ear drops as prescribed if needed for ear wax. - Reduce intake of spicy, greasy foods, and dairy products. - Complete all recommended blood tests a nd screenings. [facility] Medical History (Updated 09/13/24 @ 00:04 by Jacki Mcdowell) Suicide attempt Family History (Updated 11/15/24 @ 16:15 by Eder Lutz MA) Father Asthma Mother No problems noted. Social History Household Members: Family Household Members Other:: Mother Housing: House Alcohol intake: current Alcohol intake frequency: holidays/special occasions only Patient Tobacco Use Status: Current someday Tobacco user Substance Use Type: Marijuana service: No Current occupational status: student Sexual orientation: Don't Know Cognitive needs: No Hearing needs: No Vision needs: Yes (rx glasses) Questionnaire PHQ-9 Over the last 2 weeks, how often have you been bothered by any of the following problems? 1. Little interest or pleasure in doing things: not at all 2. Feeling down, depressed, or hopeless: not at all 3. Trouble falling or staying asleep, or sleeping too much: not at all 4. Feeling tired or having little energy: not at all 5. Poor appetite or overeating: not at all 6. Feeling bad about yourself - or that you are a failure or have let yourself or your family down: not at all 7. Trouble concentrating on things, such as reading the newspaper or watching television: not at all 8. Moving or speaking so slowly that other people could have noticed. Or the opposite - being so fidgety or restless that you have been moving around a lot more than usual: not at all 9. Thoughts that you would be better off or of hurting yourself in some way: not at all Total score: 0 Depression Screening Interpretation: Negative Depression Screening Done: Yes Source: Developed by Drs. Joesph Clark, Kendra Easton, Leonides Witt and colleagues, with an educational jose from [employer]. Thrive Questionnaire Date Thrive assessed: 11/15/24 I am a: Patient What is your living situation today?: I have a steady place to live Within the past 12 months, did the food you bought not last and you didn't have the money to get more?: Never true Within the past 12 months, did you worry whether your food would run out before you got money to buy more?: Never true Do you have trouble paying for medicines?: No Do you have trouble getting transportation to medical appointments?: No Do you have trouble paying your heating and electricity bill?: No Do you have trouble taking care of your child, family member or friend?: No Do you have trouble with day-to-day activities such as bathing, preparing meals, shopping, managing finances, etc.?: No Are you currently unemployed and looking for a job?: No Are you interested in more education?: No Please select the resources that you would like help with: None Currently or been in a relationship where the following occur: No concerns reported THRIVE Score: 0 AUDIT C Alcohol Use Questionnaire (AUDIT-C) 1. How often do you have a drink containing alcohol?: Monthly or less 2. How many drinks containing alcohol do you have on a typical day when you are drinking?: 1 or 2 3. How often do you have six or more drinks on one occasion?: Never Total Score: 1 JAYANT-7 AMB Questionnaire JAYANT-7 Date JAYANT - 7 assessed: 11/15/24 Feeling nervous, anxious, or on edge: 0 = Not at all Not being able to stop or control worryin = Not at all Worrying too much about different things: 0 = Not at all Trouble relaxin = Not at all Being so restless that it is hard to sit still: 0 = Not at all Becoming easily annoyed or irritable: 0 = Not at all Feeling afraid as if something awful might happen: 0 = Not at all Total JAYANT-7 score (0-4 normal; 5-9 mild; 10-14 moderate; 15-21 severe): 0 Source: Developed by Drs. Joesph Clark, Kendra Easton, Leonides Witt and colleagues, with an educational jose from [employer]. Physical exam (Primary Care) Tobacco/Smoking Status: Tobacco use Status Patient Tobacco Use Status Never used Tobacco 11/15/24 15:58 Depression Screening Interpretation: Negative Thrive Assessment: Date of Thrive Assessment Date Thrive assessed 08/31/24 11/15/24 15:58 Currently or been in a relationship where the following occur: No concerns reported Coding Level of Care Code New Pt Level 3 (73416) Diagnoses Encounter to establish care with new provider Z76.89 Routine lab draw Z01.89 Encounter for screening, unspecified Z13.9 Counseling, unspecified Z71.9 Screening for HIV (human immunodeficiency virus) Z11.4 Screening for depression Z13.31 Screening for diabetes mellitus Z13.1 Screening for lipoid disorders Z13.220 Hypertension screen Z13.6 Bilateral impacted cerumen H61.23 Laterality: bilateral Hair loss L65.9 Vomiting without nausea, unspecified vomiting type R11.11 Vomiting type: unspecified Nausea presence: without nausea Indigestion K30 Assessment & Plan Assessment & Plan (1) Encounter to establish care with new provider: Code(s): Z76.89 - Persons encountering health services in other specified circumstances (2) Routine lab draw: Code(s): Z01.89 - Encounter for other specified special examinations (3) Encounter for screening, unspecified: Code(s): Z13.9 - Encounter for screening, unspecified (4) Counseling, unspecified: Code(s): Z71.9 - Counseling, unspecified (5) Screening for HIV (human immunodeficiency virus): Code(s): Z11.4 - Encounter for screening for human immunodeficiency virus [HIV] (6) Screening for depression: Code(s): Z13.31 - Encounter for screening for depression (7) Screening for diabetes mellitus: Code(s): Z13.1 - Encounter for screening for diabetes mellitus (8) Screening for lipoid disorders: Code(s): Z13.220 - Encounter for screening for lipoid disorders (9) Hypertension screen: Code(s): Z13.6 - Encounter for screening for cardiovascular disorders (10) Cerumen impaction: Code(s): H61.20 - Impacted cerumen, unspecified ear Qualifiers: Laterality: bilateral Qualified Code(s): H61.23 - Impacted cerumen, bilateral (11) Hair loss: Code(s): L65.9 - Nonscarring hair loss, unspecified (12) Vomiting: Code(s): R11.10 - Vomiting, unspecified Qualifiers: Vomiting type: unspecified Nausea presence: without nausea Qualified Code(s): R11.11 - Vomiting without nausea (13) Indigestion: Code(s): K30 - Functional dyspepsia Plan Orders: Orders Comprehensive Met. Panel Today Z13.9 - Encounter for screening, unspecified, Z76.89 - Persons encountering health services in other specified circumstances Hemoglobin A1c Today Z13.9 - Encounter for screening, unspecified, Z76.89 - Persons encountering health services in other specified circumstances Hepatitis B Surface Antigen Today Z13.9 - Encounter for screening, unspecified, Z76.89 - Persons encountering health services in other specified circumstances Hepatitis C Antibody Today Z13.9 - Encounter for screening, unspecified, Z76.89 - Persons encountering health services in other specified circumstances TSH reflex Free T4 Today Z13.9 - Encounter for screening, unspecified, Z76.89 - Persons encountering health services in other specified circumstances UA CC w/rflx Micro + Cult Today Z13.9 - Encounter for screening, unspecified, Z76.89 - Persons encountering health services in other specified circumstances Vitamin D 1,25 dihydroxy Today Z13.9 - Encounter for screening, unspecified, Z76.89 - Persons encountering health services in other specified circumstances Chlamydia Species Ab Panel Today Z13.9 - Encounter for screening, unspecified, Z76.89 - Persons encountering health services in other specified circumstances Syphilis Screen Today Z13.9 - Encounter for screening, unspecified, Z76.89 - Persons encountering health services in other specified circumstances Transferrin Today D50.9 - Iron deficiency anemia, unspecified, L65.9 - Nonscarring hair loss, unspecified, Z13.9 - Encounter for screening, unspecified, Z76.89 - Persons encountering health services in other specified circumstances Complete Blood Count Auto Diff Today Z13.9 - Encounter for screening, unspecified, Z76.89 - Persons encountering health services in other specified circumstances Hepatitis B Surface Antibody Today Z13.9 - Encounter for screening, unspecified, Z76.89 - Persons encountering health services in other specified circumstances HIV Ab/Ag Today Z13.9 - Encounter for screening, unspecified, Z76.89 - Persons encountering health services in other specified circumstances Lipid Panel Today Z13.9 - Encounter for screening, unspecified, Z76.89 - Persons encountering health services in other specified circumstances Magnesium Today Z13.9 - Encounter for screening, unspecified, Z76.89 - Persons encountering health services in other specified circumstances CT NG by PCR Urine Today Z13.9 - Encounter for screening, unspecified, Z76.89 - Persons encountering health services in other specified circumstances Zinc Today L65.9 - Nonscarring hair loss, unspecified, Z13.9 - Encounter for screening, unspecified, Z76.89 - Persons encountering health services in other specified circumstances Ferritin Today D50.9 - Iron deficiency anemia, unspecified, L65.9 - Nonscarring hair loss, unspecified, Z13.9 - Encounter for screening, unspecified, Z76.89 - Persons encountering health services in other specified circumstances IRON PROFILE Today D50.9 - Iron deficiency anemia, unspecified, L65.9 - Nonscarring hair loss, unspecified, Z13.9 - Encounter for screening, unspecified, Z76.89 - Persons encountering health services in other specified circumstances Vitamin B12 and Folate Today L65.9 - Nonscarring hair loss, unspecified, Z13.9 - Encounter for screening, unspecified, Z76.89 - Persons encountering health services in other specified circumstances Medications: New omeprazole 20 mg PO DAILY 30 caps 0RF carbamide peroxide 6.5% (Debrox) 5 drps otic (ears) Q12H 15 mL 0RF 4 days Discontinued ondansetron Discontinued Reason: Patient no longer taking 8 mg translingual Q12H 30 days PRN 60 tabs 0RF Nausea And Vomiting
[2024-11-15 16:16] VITALS: BP 140/78; PULSE 88; RESP 16; TEMP 36.8; O2SAT 98; BMI 28.6
== END 2024-11-15 16:41 | disposition home or self-care (01) ==
LOC: HO.HMCFMS 15:52
PROVIDERS: PCP Student in an Organized Health Care Education/Training Program; Visit Provider Student in an Organized Health Care Education/Training Program
DX: R11.11 Vomiting without nausea (principal); H61.23 Impacted cerumen, bilateral; K30 Functional dyspepsia; L65.9 Nonscarring hair loss, unspecified

== ENCOUNTER → 2024-11-15 15:51 | Outpatient (BNVA) | payer OTHER, SELFPAY | PROVIDERS: PCP Student in an Organized Health Care Education/Training Program; Visit Provider Student in an Organized Health Care Education/Training Program | DX: Z76.89 Persons encountering health services in other specified circumstances (principal); R11.2 Nausea with vomiting, unspecified; L65.9 Nonscarring hair loss, unspecified; H61.23 Impacted cerumen, bilateral; K30 Functional dyspepsia; F32.9 Major depressive disorder, single episode, unspecified; F17.210 Nicotine dependence, cigarettes, uncomplicated; Z79.899 Other long term (current) drug therapy; Z13.31 Encounter for screening for depression; Z13.39 Encounter for screening examination for other mental health and behavioral disorders | CPT/HCPCS: 99202 ==

== ENCOUNTER 2024-11-28 15:55 | Outpatient (REF) | payer OTHER, SELFPAY ==
[2024-11-28 16:15] LABS: MANUAL DIFF FLAG NO
[2024-11-28 17:16] LABS: Hematocrit 42.4 % (42.0-52.0); Hemoglobin 14.8 g/dl (14.0-18.0); Imm Gran Abs Auto 0.01 X10*3/uL (0.00-0.03); Imm Gran Pct Auto 0.1 % (0.0-0.4); Lymphocytes Absolute Auto 2.6 X10*3/uL (1.2-4.9); Mean Corpuscular HGB Conc 34.9 g/dl (31.0-36.0); Mean Corpuscular Hemoglobin 29.0 pg (27.0-33.0); Mean Corpuscular Volume 83.0 fL (80.0-98.0); NRBC Abs Auto 0.000 X10*3/uL (0.0-0.012); NRBC Pct Auto 0.0 /100WBC (0.0-0.2); Platelet Count 307 X10*3/uL (160-400); Red Blood Count 5.11 X10*6/uL (4.60-5.80); White Blood Count 7.8 X10*3/uL (4.8-10.8)
[2024-11-28 17:53] LABS: Appearance Urine Clear; Glucose Urine UA Negative (Negative); PH 6.5 (5.0-9.0); Specific Gravity - Urine 1.015 (1.005-1.025); UMIC TRIGGER UACC YES
[2024-11-28 18:31] LABS: Alanine Aminotransferase 20 U/L (0-40); Albumin Level 5.2 g/dL (3.5-5.0); Alkaline Phosphatase 54 U/L (39-117); Anion Gap 13 (12-20); Aspartate Amino Transferase 24 U/L (5-37); Blood Urea Nitrogen 11 mg/dL (9-16); Calcium 9.5 mg/dL (8.4-10.2); Carbon Dioxide 27 mmol/L (22-29); Chloride 109 mmol/L (96-108); Cholesterol 141 mg/dL (<200); Estimated Glomerular Filt Rate > 60; HDL Cholesterol 38 mg/dL (>40); Iron 82 mcg/dL (45-160); Magnesium 2.2 mg/dL (1.6-2.6); Percent Iron Saturation 26 % (15-50); Potassium 3.7 mmol/L (3.3-5.1); Sodium 145 mmol/L (135-145); Total Iron Binding Capacity 321 mcg/dL (228-428); Total Protein 7.9 g/dL (6.5-8.0); Triglycerides 60 mg/dL (<150); Unsaturated Iron Binding 239 ug/dL
[2024-11-28 18:47] LABS: Ferritin 63 ng/mL (20-250)
[2024-11-28 18:53] LABS: Folate 11.5 ng/mL (> or = 4.0); Vitamin B12 473 pg/mL (200-900)
[2024-11-29 05:07] LABS: CT PCR Urine NOT DETECTED (Not Detect.); NG PCR Urine NOT DETECTED (Not Detect.)
[2024-11-29 05:13] LABS: Syphilis Screen Nonreactive (Nonreactive)
[2024-11-29 05:16] LABS: Total Hemoglobin (HGBA1C) 3925.2547 umol/L
[2024-11-29 05:25] LABS: HBS Num1 0.00 mIU/mL (0-7.99); HBsAGNum1 0.29 S/CO (0.00-0.99); HIV Num 1 0.05 S/CO (0.00-0.99); Hepatitis B Surface Antigen Negative (Negative); ~HepC Num1 0.09 S/CO (0.00-0.79); ~Hepatitis B Surface Antibody NONREACTIVE (Nonreactive); ~Hepatitis C Antibody Nonreactive (Nonreactive)
[2024-11-29 07:52] LABS: Transferrin 284 mg/dL (188-341)
[2024-12-02 00:19] LABS: Chlamydia Trachomatis IgA <1:16 titer (<1:16)
[2024-12-02 12:29] LABS: VITAMIN D (1,25 OH) D3 45 pg/mL; Vit D (1,25-Dihydroxy) Total 45 pg/mL (18-72); Vitamin D (1,25 OH) D2 <8 pg/mL
== END 2024-11-28 15:56 | disposition home or self-care (01) ==
LOC: HO.LAB 15:55
PROVIDERS: PCP Student in an Organized Health Care Education/Training Program; Visit Provider Student in an Organized Health Care Education/Training Program
DX: Z76.89 Persons encountering health services in other specified circumstances (principal); Z11.4 Encounter for screening for human immunodeficiency virus [HIV]; Z11.59 Encounter for screening for other viral diseases; Z13.89 Encounter for screening for other disorder; Z20.2 Contact with and (suspected) exposure to infections with a predominantly sexual mode of transmission; D50.9 Iron deficiency anemia, unspecified; L65.9 Nonscarring hair loss, unspecified
CPT/HCPCS: 80053; 80061; 81001; 82607; 82652; 82728; 82746; 83036; 83540; 83735; 84443; 84466; 84630; 85025; 86631; 86632; 86706; 86780; 86803; 87340; 87389; 87491; 87591

== ENCOUNTER 2024-11-29 15:06 | Outpatient (AMB) | payer OTHER, SELFPAY ==
[2024-11-29 15:19] VITALS: BP 120/60; PULSE 60; RESP 16; TEMP 36.7; O2SAT 98; BMI 27.8
--- NOTE | 2024-11-29 15:19 | A.OFFPC_ITS ---
Vital Signs 11/29/24 15:19 Height 5 ft 7.32 in Weight 179 lb 4 oz BMI 27.8 BP 120/60 Blood Pressure Location Lt brachial Position Sitting Respiration 16 Pulse 60 Pulse Source Pulse Oximeter Temp 98.1 F Temp Source Oral Pulse Oximetry (%) 98 Oxygen Delivery Method Room Air Intake Visit Reasons: 2 week follow up Intake Note: stomach issues and hair lost [employer] Fence [employer] Required: No Accompanied by: Self / Same As Patient Allergies amoxicillin (AMOXICILLIN) Allergy (Unknown, Verified 11/29/24 15:22) RASH Tobacco use date assessed: 11/15/24 Dental Screening Dental Screen Date: 11/15/24 Did you have a dental visit in the last 12 months?: Yes Did you have a dental problem in the last 6 months where you did not have access to dental care?: No Was dental information given to patient?: Patient has dentist HPI HPI Comments History of Present Illness Details History of Present Illness The patient is a 24-year-old male presenting for follow-up on lab results and management of hair loss and gastric pain. Low HDL cholesterol: - The patient's HDL cholesterol was foun d to be 38 mg/dL, which is slightly below the normal range of 40 mg/dL and above. - The LDL cholesterol, total cholesterol , and triglycerides were within normal limits. Trace hematuria: - Trace amounts of blood were detected i n the urine, which the patient has not experienced before. - The patient denies any associated symp toms such as pelvic pain or trauma. Hair loss: - The patient reports hair loss and is c onsidering starting finasteride 1 mg da dalia to promote hair regrowth. Gastric pain with nausea: - The patient experiences gastric pain c haracterized by fullness after eating and nausea when hungry, leading to vomiting. - The patient has not tried any specific medications for gastric pain but has used anti-nausea medication with limited success. Review of Systems - Gastrointestinal: Reports gastric pain with nausea and vomiting. Denies any other gastrointestinal symptoms. - Genitourinary: Denies pelvic pain or t rauma. 10-point ROS reviewed and negative excep t as noted in HPI Past Medical History Health Maintenance - Plan to repeat blood and urine tests i n three months to monitor trace hematuria and cholesterol levels. Physical Exam General: Well-appearing, in no acute distress. Vital signs: Within normal limits. HEENT: Normocephalic, atraumatic. PERRLA, EOMI. Conjunctiva clear, sclera anicteric. Oropharynx clear, mucous membranes moist. TMs intact bilaterally. Neck: Supple, no lymphadenopathy, no thyromegaly, no JVD or carotid bruits. Cardiovascular: RRR, normal S1/S2, no murmurs, rubs, or gallops. Peripheral pulses 2+ and symmetric. No edema. Respiratory: Lungs clear to auscultation bilaterally, no wheezes, rales, or rhonchi. Normal effort. Abdomen: Soft, non-tender, non-distended. Normoactive bowel sounds. No hepatosplenomegaly, no masses. Reports gastric pain with fullness after eating and nausea when hungry. MSK: Full range of motion, no joint swelling or deformity. Normal gait. Skin: Warm, dry, intact. No rashes, lesions, or pallor. Neuro: Alert and oriented x3. Cranial nerves II-XII intact. Strength 5/5 throughout. Sensation intact. Reflexes 2+ symmetric. Normal coordination and gait. Psych: Appropriate mood and affect. Normal judgment and insight. Plan 1. Low Hdl Cholesterol - No immediate intervention required as other cholesterol levels are normal. Plan to monitor. 2. Trace Hematuria - Plan to repeat urinalysis in three mon ths to assess persistence of hematuria. 3. Hair Loss - Initiate finasteride 1 mg daily to pro mote hair regrowth. Follow-up in three months to assess efficacy. 4. Gastric Pain With Nausea - Start pantoprazole 20 mg daily for two weeks to reduce gastric acid. - Recommend vitamin B6 and morena for na usea management. - Follow-up in two weeks to evaluate res ponse to treatment. Discussion Notes I discussed with the patient that his HDL cholesterol is slightly below normal but not concerning given other normal lipid levels. We will repeat blood and urine tests in three months to monitor trace hematuria. For hair loss, we agreed to start finasteride 1 mg daily. For gastric pain, I recommended pantoprazole 20 mg daily for two weeks and vitamin B6 with morena for nausea. Follow-up in two weeks for gastric symptoms and three months for other issues was advised. Patient was informed and verbally consented to the use of an ambient scribe for clinic note documentation during this visit. Patient Instructions - Take finasteride 1 mg daily for hair l oss. - Take pantoprazole 20 mg daily for two weeks for gastric pain. - Use vitamin B6 and morena for nausea r elief. - Follow-up in two weeks for gastric sym ptoms and in three months for lab tests. [facility] Medical History Suicide attempt Family History Father Asthma Mother No problems noted. Social History Household Members: Family Household Members Other:: Mother Housing: House Alcohol intake: current Alcohol intake frequency: holidays/special occasions only Patient Tobacco Use Status: Current someday Tobacco user Substance Use Type: Marijuana service: No Current occupational status: student Sexual orientation: Don't Know Cognitive needs: No Hearing needs: No Vision needs: Yes (rx glasses) Questionnaire PHQ-9 Over the last 2 weeks, how often have you been bothered by any of the following problems? 1. Little interest or pleasure in doing things: several days 2. Feeling down, depressed, or hopeless: not at all 3. Trouble falling or staying asleep, or sleeping too much: not at all 4. Feeling tired or having little energy: not at all 5. Poor appetite or overeating: nearly every day 6. Feeling bad about yourself - or that you are a failure or have let yourself or your family down: several days 7. Trouble concentrating on things, such as reading the newspaper or watching television: not at all 8. Moving or speaking so slowly that other people could have noticed. Or the opposite - being so fidgety or restless that you have been moving around a lot more than usual: not at all 9. Thoughts that you would be better off or of hurting yourself in some way: not at all Total score: 5 Source: Developed by Drs. Joesph Clark, Kendra Easton, Leonides Witt and colleagues, with an educational jose from [employer]. Thrive Questionnaire Date Thrive assessed: 11/15/24 I am a: Patient What is your living situation today?: I choose not to answer this question Within the past 12 months, did the food you bought not last and you didn't have the money to get more?: I choose not to answer this question Within the past 12 months, did you worry whether your food would run out before you got money to buy more?: I choose not to answer this question Do you have trouble paying for medicines?: No Do you have trouble getting transportation to medical appointments?: No Do you have trouble paying your heating and electricity bill?: No Do you have trouble taking care of your child, family member or friend?: No Are you currently unemployed and looking for a job?: No Are you interested in more education?: Yes Please select the resources that you would like help with: None Currently or been in a relationship where the following occur: I choose not to answer THRIVE Score: 0 AUDIT C Alcohol Use Questionnaire (AUDIT-C) 1. How often do you have a drink containing alcohol?: Monthly or less 2. How many drinks containing alcohol do you have on a typical day when you are drinking?: 3 or 4 3. How often do you have six or more drinks on one occasion?: Less than monthly Total Score: 3 JAYANT-7 AMB Questionnaire JAYANT-7 Date JAYANT - 7 assessed: 11/15/24 Feeling nervous, anxious, or on edge: 1 = Several days Not being able to stop or control worryin = Not at all Worrying too much about different things: 1 = Several days Trouble relaxin = Not at all Being so restless that it is hard to sit still: 1 = Several days Becoming easily annoyed or irritable: 0 = Not at all Feeling afraid as if something awful might happen: 0 = Not at all Total JAYANT-7 score (0-4 normal; 5-9 mild; 10-14 moderate; 15-21 severe): 3 Source: Developed by Drs. Joesph Clark, Kendra Easton, Leonides Witt and colleagues, with an educational jose from [employer]. Physical exam (Primary Care) Vital Signs: Last Vital Signs Temp 98.1 F 11/29/24 15:19 Pulse 60 11/29/24 15:19 Resp 16 11/29/24 15:19 BP 120/60 11/29/24 15:19 Pulse Ox 98 11/29/24 15:19 Oxygen Delivery Method Room Air 11/29/24 15:19 BMI result Body Mass Index 27.8 Tobacco/Smoking Status: Tobacco use Status Tobacco use date assessed 11/15/24 11/29/24 15:26 Patient Tobacco Use Status Current someday Tobacco 11/29/24 15:26 PHQ-9: PHQ-9 Score PHQ-9: Total score 5 11/29/24 15:26 Thrive Assessment: Date of Thrive Assessment Date Thrive assessed 11/15/24 11/29/24 15:26 Currently or been in a relationship where the following occur: I choose not to answer Coding Level of Care Code Est Pt Level 3 (70780) Diagnoses Encounter to discuss test results Z71.2 Nausea R11.0 Low HDL (under 40) E78.6 Blood in urine R31.9 Loss of hair L65.9 Alopecia L65.9 Assessment & Plan Assessment & Plan (1) Encounter to discuss test results: Code(s): Z71.2 - Person consulting for explanation of examination or test findings (2) Nausea: Code(s): R11.0 - Nausea (3) Low HDL (under 40): Code(s): E78.6 - Lipoprotein deficiency (4) Blood in urine: Code(s): R31.9 - Hematuria, unspecified (5) Loss of hair: Code(s): L65.9 - Nonscarring hair loss, unspecified (6) Alopecia: Code(s): L65.9 - Nonscarring hair loss, unspecified Plan Medications: New finasteride 1 mg PO DAILY 90 tabs 0RF pantoprazole 20 mg PO DAILY 14 tabs 0RF
== END 2024-11-29 15:56 | disposition home or self-care (01) ==
LOC: HO.HMCFMS 15:07
PROVIDERS: Visit Provider Student in an Organized Health Care Education/Training Program
DX: R11.0 Nausea (principal); E78.6 Lipoprotein deficiency; R31.9 Hematuria, unspecified; L65.9 Nonscarring hair loss, unspecified

== ENCOUNTER → 2024-11-29 15:06 | Outpatient (BNVA) | payer OTHER, SELFPAY | PROVIDERS: Visit Provider Student in an Organized Health Care Education/Training Program | DX: Z71.2 Person consulting for explanation of examination or test findings (principal); R11.0 Nausea; E78.6 Lipoprotein deficiency; R31.9 Hematuria, unspecified; L65.9 Nonscarring hair loss, unspecified; Z13.30 Encounter for screening examination for mental health and behavioral disorders, unspecified | CPT/HCPCS: 99212 ==

== ENCOUNTER 2024-12-13 15:06 | Outpatient (AMB) | payer OTHER, SELFPAY ==
--- NOTE | 2024-12-13 15:12 | A.OFFPC_ITS ---
Vital Signs 12/13/24 15:13 Height 5 ft 7.32 in Weight 177 lb 8 oz BMI 27.5 BP 119/57 L Blood Pressure Location Rt brachial Position Sitting Respiration 20 Pulse 75 Pulse Source Pulse Oximeter Temp 98.0 F Temp Source Oral Pulse Oximetry (%) 97 Oxygen Delivery Method Room Air Intake Visit Reasons: 2 wk f/u Accompanied by: Self / Same As Patient Allergies amoxicillin (AMOXICILLIN) Allergy (Unknown, Verified 12/13/24 15:13) RASH Tobacco use date assessed: 12/13/24 Dental Screening Dental Screen Date: 12/13/24 Did you have a dental visit in the last 12 months?: Yes Was dental information given to patient?: Patient has dentist HPI HPI Comments History of Present Illness Details Consent Patient was informed and verbally consented to the use of an ambient scribe for clinic note documentation during this visit. History of Present Illness The patient is a 24-year-old male presenting with gastric pain and nausea. Gastric pain: - The patient reported experiencing denisha samia pain, which was addressed with pantoprazole therapy. - The patient started pantoprazole recen tly and has not yet experienced relief from gastric pain. - The patient was advised to continue pa ntoprazole daily regardless of symptom presence. Nausea: - The patient experienced daily nausea, which has improved since starting pantoprazole. - The patient was advised to use vitamin B6 and morena for nausea relief. - The patient has been consuming smaller meal portions, which has helped alleviate nausea. Review of Systems - Gastrointestinal: Reports gastric pain and nausea. Denies any current nausea after starting pantoprazole. 10-point ROS reviewed and negative excep t as noted in HPI Past Medical History Health Maintenance - Dietary modification: Smaller meal por tions to manage gastric symptoms. Physical Exam General: Well-appearing, in no acute distress. Vital signs: Within normal limits. HEENT: Normocephalic, atraumatic. PERRLA, EOMI. Conjunctiva clear, sclera anicteric. Oropharynx clear, mucous membranes moist. TMs intact bilaterally. Neck: Supple, no lymphadenopathy, no thyromegaly, no JVD or carotid bruits. Cardiovascular: RRR, normal S1/S2, no murmurs, rubs, or gallops. Peripheral pulses 2+ and symmetric. No edema. Respiratory: Lungs clear to auscultation bilaterally, no wheezes, rales, or rhonchi. Normal effort. Abdomen: Soft, non-tender, non-distended. Normoactive bowel sounds. No hepatosplenomegaly, no masses. MSK: Full range of motion, no joint swelling or deformity. Normal gait. Skin: Warm, dry, intact. No rashes, lesions, or pallor. Neuro: Alert and oriented x3. Cranial nerves II-XII intact. Strength 5/5 throughout. Sensation intact. Reflexes 2+ symmetric. Normal coordination and gait. Psych: Appropriate mood and affect. Normal judgment and insight. Plan 1. Gastric Pain - Continue pantoprazole daily for gastri c pain management. - Follow-up in two weeks to assess sympt om improvement. 2. Nausea - Continue vitamin B6 and morena for josé miguel sea relief. - Maintain dietary modifications with sm aller meal portions. - Follow-up in two weeks to evaluate josé miguel sea management. 3. alopecia continue current medication Discussion Notes I discussed with the patient the management of gastric pain and nausea, emphasizing the importance of continuing pantoprazole and using vitamin B6 and morena for nausea relief. We also talked about dietary modifications, specifically smaller meal portions, to help manage symptoms. Follow-up was scheduled in two weeks to monitor progress and adjust treatment as necessary. Patient Instructions - Take pantoprazole daily, even if sympt oms improve. - Use vitamin B6 and morena for nausea r elief. - Eat smaller meal portions to help with gastric symptoms. - Follow up in two weeks to check on you r progress -continue finasteride Medical Decision Making The decision to continue pantoprazole was based on its potential to alleviate gastric pain, despite the patient not yet experiencing relief since he only started yesterday. Vitamin B6 and morena were recommended for nausea, as they are known to be effective and safe options. Dietary modifications were advised to prevent symptom exacerbation, and follow-up was planned to reassess the treatment efficacy. Total time spent caring for the patient today was 30 minutes. This includes time spent before the visit reviewing the chart, time spent documenting, and time spent reviewing laboratory results, diagnostic imaging, medications, performing a medically necessary evaluation, counseling on diagnoses, care coordination, ordering appropriate tests, ordering appropriate medications. [facility] Medical History Suicide attempt Family History Father Asthma Mother No problems noted. Social History Household Members: Family Household Members Other:: Mother Housing: House Alcohol intake: current Alcohol intake frequency: holidays/special occasions only Patient Tobacco Use Status: Former Tobacco user e-Cigarette/Vaping Use: Currently Using Substance Use Type: Marijuana service: No Current occupational status: employed and student Sexual orientation: Don't Know Cognitive needs: No Hearing needs: No Vision needs: Yes (rx glasses) Questionnaire PHQ-9 Over the last 2 weeks, how often have you been bothered by any of the following problems? 1. Little interest or pleasure in doing things: several days 2. Feeling down, depressed, or hopeless: not at all 3. Trouble falling or staying asleep, or sleeping too much: not at all 4. Feeling tired or having little energy: not at all 5. Poor appetite or overeating: nearly every day 6. Feeling bad about yourself - or that you are a failure or have let yourself or your family down: several days 7. Trouble concentrating on things, such as reading the newspaper or watching television: not at all 8. Moving or speaking so slowly that other people could have noticed. Or the opposite - being so fidgety or restless that you have been moving around a lot more than usual: not at all 9. Thoughts that you would be better off or of hurting yourself in some way: not at all Total score: 5 Source: Developed by Drs. Joesph Clark, Kendra Easton, Leonides Witt and colleagues, with an educational jose from [employer]. Thrive Questionnaire Date Thrive assessed: 12/13/24 I am a: Patient What is your living situation today?: I choose not to answer this question Within the past 12 months, did the food you bought not last and you didn't have the money to get more?: I choose not to answer this question Within the past 12 months, did you worry whether your food would run out before you got money to buy more?: I choose not to answer this question Do you have trouble paying for medicines?: No Do you have trouble getting transportation to medical appointments?: No Do you have trouble paying your heating and electricity bill?: No Do you have trouble taking care of your child, family member or friend?: No Do you have trouble with day-to-day activities such as bathing, preparing meals, shopping, managing finances, etc.?: No Are you currently unemployed and looking for a job?: No Are you interested in more education?: Yes Please select the resources that you would like help with: None Currently or been in a relationship where the following occur: I choose not to a nswer THRIVE Score: 0 AUDIT C Alcohol Use Questionnaire (AUDIT-C) 1. How often do you have a drink containing alcohol?: Monthly or less 2. How many drinks containing alcohol do you have on a typical day when you are drinking?: 3 or 4 3. How often do you have six or more drinks on one occasion?: Less than monthly Total Score: 3 JAYANT-7 AMB Questionnaire JAYANT-7 Date JAYANT - 7 assessed: 12/13/24 Feeling nervous, anxious, or on edge: 1 = Several days Not being able to stop or control worryin = Not at all Worrying too much about different things: 1 = Several days Trouble relaxin = Not at all Being so restless that it is hard to sit still: 1 = Several days Becoming easily annoyed or irritable: 0 = Not at all Feeling afraid as if something awful might happen: 0 = Not at all Total JAYANT-7 score (0-4 normal; 5-9 mild; 10-14 moderate; 15-21 severe): 3 Source: Developed by Drs. Joesph Clark, Kendra Easton, Leonides Witt and colleagues, with an educational jose from [employer]. Physical exam (Primary Care) Vital Signs: Last Vital Signs Temp 98.0 F 12/13/24 15:13 Pulse 75 12/13/24 15:13 Resp 20 12/13/24 15:13 BP 119/57 L 12/13/24 15:13 Pulse Ox 97 12/13/24 15:13 Oxygen Delivery Method Room Air 12/13/24 15:13 BMI result Body Mass Index 27.5 Tobacco/Smoking Status: Tobacco use Status Tobacco use date assessed 12/13/24 12/13/24 15:22 Patient Tobacco Use Status Former Tobacco user 12/13/24 15:22 e-Cigarette/Vaping Use Currently Using 12/13/24 15:22 PHQ-9: PHQ-9 Score PHQ-9: Total score 5 12/13/24 15:22 Thrive Assessment: Date of Thrive Assessment Date Thrive assessed 12/13/24 12/13/24 15:22 Currently or been in a relationship where the following occur: I choose not to answer Coding Level of Care Code Est Pt Level 4 (05848) Diagnoses Gastric pain R10.9 Nausea R11.0 Alopecia L65.9 Assessment & Plan Assessment & Plan (1) Gastric pain: Code(s): R10.9 - Unspecified abdominal pain (2) Nausea: Code(s): R11.0 - Nausea (3) Alopecia: Code(s): L65.9 - Nonscarring hair loss, unspecified Plan
[2024-12-13 15:13] VITALS: BP 119/57; PULSE 75; RESP 20; TEMP 36.7; O2SAT 97; BMI 27.5
== END 2024-12-13 15:36 | disposition home or self-care (01) ==
LOC: HO.HMCFMS 15:07
PROVIDERS: PCP Student in an Organized Health Care Education/Training Program; Visit Provider Student in an Organized Health Care Education/Training Program
DX: R10.9 Unspecified abdominal pain (principal); R11.0 Nausea; L65.9 Nonscarring hair loss, unspecified

== ENCOUNTER → 2024-12-13 15:06 | Outpatient (BNVA) | payer OTHER, SELFPAY | PROVIDERS: PCP Student in an Organized Health Care Education/Training Program; Visit Provider Student in an Organized Health Care Education/Training Program | DX: R11.0 Nausea (principal); R10.9 Unspecified abdominal pain; L65.9 Nonscarring hair loss, unspecified | CPT/HCPCS: 99212 ==

== ENCOUNTER 2024-12-27 15:36 | Outpatient (AMB) | payer OTHER, SELFPAY ==
--- NOTE | 2024-12-27 15:40 | A.OFFPC_ITS ---
Vital Signs 12/27/24 15:45 Height 5 ft 7.32 in Weight 172 lb 6 oz BMI 26.7 BP 118/67 Blood Pressure Location Rt brachial Position Sitting Respiration 18 Pulse 92 Pulse Source Monitor Temp 98 F Temp Source Oral Pulse Oximetry (%) 97 Oxygen Delivery Method Room Air Intake Visit Reasons: 2 week follow up Intake Note: 2 week follow up B2B Account Executive Required: No Allergies amoxicillin (AMOXICILLIN) Allergy (Unknown, Verified 12/27/24 15:43) RASH Tobacco use date assessed: 12/27/24 Dental Screening Dental Screen Date: 12/27/24 Did you have a dental visit in the last 12 months?: Yes Did you have a dental problem in the last 6 months where you did not have access to dental care?: No Was dental information given to patient?: Patient has dentist HPI HPI Comments History of Present Illness Details History of Present Illness The patient is a 24-year-old male presenting for a follow-up on his nausea and hair loss treatment and for recommendations on travel vaccinations. Nausea: The patient was started on pantoprazole and vitamin B6 for nausea. He reports that the nausea has resolved, and he is now able to tolerate small portions of food, with slow but steady improvement in his eating. Alopecia: The patient has started taking medication for hair loss but is unsure of its progress, acknowledging that it is a slow process. Encounter for health counseling related to travel: The patient has an upcoming study abroad trip to [facility] in June for an environmental science program. He has never traveled to [facility] before. 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 - Travel: He is planning a study abroad trip to [facility] in June, where he will be hiking and studying local species. - Diet: He reports being able to eat sma ll portions of food. Diagnostic Results: - Labs: Hepatitis B immunity status was checked and found to be negative. Past Medical History - Nausea, resolved with pantoprazole and vitamin B6. - Hair loss, currently under treatment. Health Maintenance - Travel Vaccinations: Discussed require ments for travel to [facility]. - Routine immunizations including MMR, T dap, polio, varicella, influenza, and COVID-19 were reviewed. - The patient states his last Tdap vacci ne was about a year ago. - Recommended vaccinations for travel in [facility] Hepatitis A, Typhoid, and Hepatitis B. - Rabies vaccination was also mentioned as a consideration depending on planned activities. [facility] Medical History Suicide attempt Family History Father Asthma Mother No problems noted. Social History (Updated 12/27/24 @ 15:44 by Casey Conrad MA) Household Members: Family Household Members Other:: Mother Housing: House Alcohol intake: current Alcohol intake frequency: holidays/special occasions only Patient Tobacco Use Status: Current someday Tobacco user e-Cigarette/Vaping Use: Currently Using Substance Use Type: Marijuana service: No Current occupational status: employed and student Sexual orientation: Don't Know Cognitive needs: No Hearing needs: No Vision needs: Yes (rx glasses) Questionnaire Thrive Questionnaire Date Thrive assessed: 11/29/24 I am a: Patient What is your living situation today?: I choose not to answer this question Within the past 12 months, did the food you bought not last and you didn't have the money to get more?: I choose not to answer this question Within the past 12 months, did you worry whether your food would run out before you got money to buy more?: I choose not to answer this question Do you have trouble paying for medicines?: No Do you have trouble getting transportation to medical appointments?: No Do you have trouble paying your heating and electricity bill?: No Do you have trouble taking care of your child, family member or friend?: No Do you have trouble with day-to-day activities such as bathing, preparing meals, shopping, managing finances, etc.?: No Are you currently unemployed and looking for a job?: No Are you interested in more education?: Yes Please select the resources that you would like help with: None Currently or been in a relationship where the following occur: I choose not to answer THRIVE Score: 0 JAYANT-7 AMB Questionnaire JAYANT-7 Date JAYANT - 7 assessed: 12/13/24 Source: Developed by Drs. Joesph Clark, Kendra Easton, Leonides Witt and colleagues, with an educational jose from [employer]. Review of Systems Narrative Review of Systems - Gastrointestinal: Denies nausea. - Integumentary: Reports hair loss. - Constitutional: Denies other complaints. 10-point ROS reviewed and negative except as noted in HPI Physical exam (Primary Care) Vital Signs: Last Vital Signs Temp 98 F 12/27/24 15:45 Pulse 92 12/27/24 15:45 Resp 18 12/27/24 15:45 BP 118/67 12/27/24 15:45 Pulse Ox 97 12/27/24 15:45 Oxygen Delivery Method Room Air 12/27/24 15:45 BMI result Body Mass Index 26.7 Tobacco/Smoking Status: Tobacco use Status Tobacco use date assessed 12/27/24 12/27/24 15:46 Patient Tobacco Use Status Current someday Tobacco 12/27/24 15:46 e-Cigarette/Vaping Use Currently Using 12/27/24 15:44 Thrive Assessment: Date of Thrive Assessment Date Thrive assessed 11/29/24 12/27/24 15:40 Currently or been in a relationship where the following occur: I choose not to answer Narrative Physical Exam General: Well-appearing, in no acute distress. Vital signs: Within normal limits. HEENT: Normocephalic, atraumatic. PERRLA, EOMI. Conjunctiva clear, sclera anicteric. Oropharynx clear, mucous membranes moist. TMs intact bilaterally. Neck: Supple, no lymphadenopathy, no thyromegaly, no JVD or carotid bruits. Cardiovascular: RRR, normal S1/S2, no murmurs, rubs, or gallops. Peripheral pulses 2+ and symmetric. No edema. Respiratory: Lungs clear to auscultation bilaterally, no wheezes, rales, or rhonchi. Normal effort. Abdomen: Soft, non-tender, non-distended. Normoactive bowel sounds. No hepatosplenomegaly, no masses. MSK: Full range of motion, no joint swelling or deformity. Normal gait. Skin: Warm, dry, intact. No rashes, lesions, or pallor. Neuro: Alert and oriented x3. Cranial nerves II-XII intact. Strength 5/5 throughout. Sensation intact. Reflexes 2+ symmetric. Normal coordination and gait. Psych: Appropriate mood and affect. Normal judgment and insight. Coding Level of Care Code Est Pt Level 4 (09984) Diagnoses Nausea R11.0 Stomach ache R10.9 Alopecia L65.9 Assessment & Plan Assessment & Plan (1) Nausea: Code(s): R11.0 - Nausea (2) Stomach ache: Code(s): R10.9 - Unspecified abdominal pain (3) Alopecia: Code(s): L65.9 - Nonscarring hair loss, unspecified Plan Consent Patient was informed and verbally consented to the use of an ambient scribe for clinic note documentation during this visit. Plan 1. Nausea - The patient's nausea has resolved with the current treatment. - Continue pantoprazole and vitamin B6. 2. Alopecia - The patient is taking medication for hair loss. - Continue current treatment. - The patient was counseled that improvement will be a slow process. 3. Encounter For Health Counseling Related To Travel - The patient will be traveling to [facility] in June. - Recommended vaccinations based on CDC guidelines include Hepatitis A and Typhoid. - Hepatitis B vaccination is also recommended as labs show he does not have immunity; the vaccine series can be provided in March. - Rabies vaccine was discussed as a consideration depending on outdoor activities. 4. Follow-Up - Follow up in 3 months, or sooner if needed. Discussion Notes I reviewed the patient's progress on pantoprazole and vitamin B6 for nausea, which has resolved. We discussed his hair loss treatment, and I counseled him that improvement will be a slow process. We discussed the necessary vaccinations for his upcoming trip to [facility], reviewing CDC recommendations. Hepatitis A and typhoid vaccines are recommended due to potential food and water contamination. His labs indicate he does not have Hepatitis B immunity, so a vaccination series was recommended, which we can start in March. I advised him to follow up in three months or sooner if concerns arise. Patient Instructions - Continue taking your pantoprazole and Vitamin B6 as directed. - Continue with your hair loss medication and be patient, as it will take time to see results. - Plan to get the recommended shots for your trip to [facility], including Hepatitis A, Typhoid, and Hepatitis B. - We can start the Hepatitis B vaccine series in March. - Please schedule a follow-up appointment in three months, but feel free to come in sooner if you have any issues. Medical Decision Making The patient is a 24-year-old male presenting for a follow-up visit. His nausea has resolved with pantoprazole and vitamin B6, indicating an excellent therapeutic response, so he will continue this regimen. He is on treatment for alopecia and was counseled that results are typically slow to appear. The primary focus of the visit shifted to travel health counseling for his upcoming trip to [facility] in June. Based on CDC recommendations, Hepatitis A and Typhoid vaccinations are advised due to the risk of contaminated food and water. A review of his laboratory results confirmed he lacks immunity to Hepatitis B, making vaccination necessary, which can be initiated in March to complete the series before his trip. The patient will continue his current medications and is scheduled for a routine follow-up in three months. Total time spent caring for the patient today was 30 minutes. This includes time spent before the visit reviewing the chart, time spent documenting, and time spent reviewing laboratory results, diagnostic imaging, medications, performing a medically necessary evaluation, counseling on diagnoses, care coordination.
[2024-12-27 15:45] VITALS: BP 118/67; PULSE 92; RESP 18; TEMP 36.6; O2SAT 97; BMI 26.7
== END 2024-12-27 16:00 | disposition home or self-care (01) ==
LOC: HO.HMCFMS 15:38
PROVIDERS: PCP Student in an Organized Health Care Education/Training Program; Visit Provider Student in an Organized Health Care Education/Training Program
DX: R11.0 Nausea (principal); R10.9 Unspecified abdominal pain; L65.9 Nonscarring hair loss, unspecified

== ENCOUNTER → 2024-12-27 15:36 | Outpatient (BNVA) | payer OTHER, SELFPAY | PROVIDERS: PCP Student in an Organized Health Care Education/Training Program; Visit Provider Student in an Organized Health Care Education/Training Program | DX: R11.0 Nausea (principal); R10.9 Unspecified abdominal pain; L65.9 Nonscarring hair loss, unspecified | CPT/HCPCS: 99212 ==